=== PATIENT | male | born 1940 | race Caucasian/White ===

== ENCOUNTER 2016-02-14 11:23 | Emergency (ER) | payer MEDICARE ==
[~2016-02-14] VITALS: Ht 180.3 cm; Wt 72.0 kg
[~2016-02-14 11:23] MED LIST: ASPI325T24 PO; AVOD0.5C PO; DIOV80TA4 PO; HEPA10KP SQ; OXYC1SOL5 PO; TAMS0.4C67 PO; TRIL135C PO
[2016-02-14 11:31] VITALS: BP 122/58; PULSE 75; RESP 16; TEMP 98.5; O2SAT 96
[2016-02-14] MEDS ORDERED: GEMF600T PO (11:48)
[2016-02-14] MEDS ORDERED: MULT1TAB85 PO (11:48)
[2016-02-14] MEDS ORDERED: AMLO2.5T PO (11:48)
[2016-02-14] MEDS ORDERED: FINA5TAB2 PO (11:48)
[2016-02-14] MEDS ORDERED: ASPI325T PO (11:48)
[2016-02-14] MEDS ORDERED: TAMS0.4C4 PO (11:48)
[2016-02-14] MEDS ORDERED: ACETAMINOPHEN 325 MG TAB PO ONE (12:30)
--- NOTE | 2016-02-14 13:09 | RADHPO ---
EXAM DATE/TIME: 02/14/2016 12:36 [facility] COMPARISON: No previous studies available for comparison. INDICATIONS: Right hip pain after fall. MEDICAL HISTORY: None. SURGICAL HISTORY: None. ENCOUNTER: Initial ACUITY: 3 days PAIN SCORE: 10/10 LOCATION: Right posterior buttock FINDINGS: Degenerative changes are present about the right hip. Alignment is anatomic. Fracture is not apprec iated. CONCLUSION: Anatomic alignment without fracture. Moderate vascular calcifications. Vijay Donis MD FACR on February 14, 2016 at 13:00 Board Certified Radiologist. This report was verified electronically.
[2016-02-14 14:20] VITALS: BP 144/50; PULSE 69; RESP 14; O2SAT 100
--- NOTE | 2016-02-14 14:41 | PD ---
HPI Chief Complaint: Fall Time Seen by Provider: 12:21 Travel History International Travel<30 days: No Contact w/Intl Traveler<30days: No Traveled to known affect area: No History of Present Illness HPI This 76-year-old male says that he fell 3 days ago. He landed on his right hip. Since then he's been having pain in the area of the hip and the right groin. He did have a fractured pelvis several years ago. He has been able to bear weight with the use of a walker. He generally does use a walker because he has had falls in the past. The pain is having is aggravated by certain movements and by weightbearing. He does live alone PFSH Past Medical History Hx Anticoagulant Therapy: Yes (ASPIRIN) Arthritis: Yes Blood Disorders: No Cancer: No Cardiovascular Problems: Yes (Vascular disease) High Cholesterol: Yes Diabetes: No Diminished Hearing: Yes Endocrine: No Glaucoma: Yes Genitourinary: Yes (BPH) Hepatitis: No Hiatal Hernia: No Hypertension: Yes Immune Disorder: No Musculoskeletal: No Neurologic: No Psychiatric: No Reproductive: No Respiratory: No Sleep Apnea: Yes Thyroid Disease: No Tetanus Vaccination: > 5 Years Influenza Vaccination: No PNEUMOCCOCAL Vaccine (Year): 2 Past Surgical History Abdominal Surgery: No Cardiac Surgery: No (RIGHT LEG BLOCKAGE REMOVAL , Carotid artery surgery right and left) Ear Surgery: No Endocrine Surgery: No Eye Surgery: No Genitourinary Surgery: No Gynecologic Surgery: No Pacemaker: No Thoracic Surgery: No Other Surgery: Yes (Carotids BL, right leg vascular) Social History Alcohol Use: Yes (2 vodka's daily) Tobacco Use: Yes (7-8 cigarettes/day) Substance Use: No Allergies-Medications (Allergen,Severity, Reaction): Coded Allergies: No Known Allergies (Verified , 02/14/16) Reported Meds & Prescriptions Reported Meds & Active Scripts Active Lortab (Hydrocodone-Acetaminophen) 5-325 Mg Tab 1-2 Tab PO Q6H PRN Reported Multivitamin Men (Multiple Vitamins W/ Minerals) 1 Tab Tab 1 Tab PO DAILY Aspirin 325 Mg Tab 325 Mg PO DAILY Amlodipine (Amlodipine Besylate) 2.5 Mg Tab 2.5 Mg PO DAILY Finasteride 5 Mg Tab 5 Mg PO DAILY Do not crush. Tamsulosin (Tamsulosin HCl) 0.4 Mg Cap 0.4 Mg PO HS Gemfibrozil 600 Mg Tab 600 Mg PO BIDAC Take 30 minutes prior to breakfast and dinner. Review of Systems General / Constitutional: No: Fever, Chills Eyes: No: Diploplia HENT: No: Headaches Cardiovascular: No: Chest Pain or Discomfort Respiratory: No: Cough Genitourinary: No: Urgency Musculoskeletal: Positive: Myalgias, Pain Skin: No Rash Physical Exam Narrative GENERAL: Well-developed male SKIN: Warm and dry. HEAD: Atraumatic. Normocephalic. EYES: Pupils equal and round. No scleral icterus. No injection or drainage. ENT: No nasal bleeding or discharge. Mucous membranes pink and moist. NECK: Trachea midline. No JVD. MUSCULOSKELETAL: No obvious deformities. No clubbing. No cyanosis. No edema. He does have some Tenderness in the right inguinal area. He does complain of some pain with internal and external rotation of the head. Distal pulses are intact NEUROLOGICAL: Awake and alert. No obvious cranial nerve deficits. Motor grossly within normal limits. Normal speech. PSYCHIATRIC: Appropriate mood and affect; insight and judgment normal. Data Data Last Documented VS Vital Signs Date Time Temp Pulse Resp B/P Pulse Ox O2 Delivery O2 Flow Rate FiO2 02/14/16 14:20 69 14 144/50 100 Room Air 02/14/16 11:31 98.5 Orders Hip, Uni(Ap&Lat) W Ap Pelvis (02/14/16 12:21) Acetaminophen (Tylenol) (02/14/16 12:30) Ct Pelvis W/O Iv Contrast (02/14/16 ) Acetamin-Hydrocod 325-5 Mg ([place] 5-325 (02/14/16 15:45) MDM Medical Decision Making Medical Screen Exam Complete: Yes Emergency Medical Condition: Yes Medical Record Reviewed: Yes Differential Diagnosis Differential includes contusion, fracture Narrative Course Plain films were ordered initially. They've been read as negative for acute fracture. Patient does appear uncomfortable with pain and I ordered a CT scan to assess for possible occult fracture. CT scan has been performed. It has been read by Dr. bartholomew. There is an acute fracture the right inferior pubic ramus with previous healed fracture also present. Comminuted fracture of the right acetabulum previously seen in April 2014 with fracture lines remaining visible. There is questionable acute hairline fracture of the right iliac bone as well. Patient wishes to be released. I will prescribe Lortab for pain. He is to follow-up with Dr. Houston who is his orthopedic doctor Diagnosis Primary Impression: Fracture, pelvis closed Qualified Code: S32.591A - Other closed fracture of right pubis, initial encounter Scripts Hydrocodone-Acetaminophen (Lortab)5-325 Mg Tab1-2 Tab PO Q6H PRN (PAIN) #30 TAB Ref 0 Prov:Van Toscano MD 02/14/16 Disposition: 01 DISCHARGE HOME Condition: Stable Van Toscano MD Feb 14, 2016 14:41
[2016-02-14] MEDS ORDERED: ACETAMINOPHEN/HYDROcodone 325 MG/5 MG TAB PO ONE (15:45)
[2016-02-14] MEDS ORDERED: HYDR-3533 PO (15:53)
--- NOTE | 2016-02-14 15:57 | RADHPO ---
EXAM DATE/TIME: 02/14/2016 15:10 [facility] COMPARISON: No previous studies available for comparison. INDICATIONS : Fall three days ago. Right hip and groin pain. ORAL CONTRAST: No oral contrast ingested. RADIATION DOSE: 24.09 CTDIvol (mGy) MEDICAL HISTORY : Hypertension. SURGICAL HISTORY : None. ENCOUNTER: Initial ACUITY: 3 days PAIN SCALE: 7/10 LOCATION: Right pelvis TECHNIQUE: Volumetric scanning of the pelvis was performed. Using automated exposure control and adjustment of the mA and/or kV according to patient size, radiation dose was kept as low as reasonably achievable t o obtain optimal diagnostic quality images. FINDINGS: Comparison is a CT right hip from April 2014. Previous comminuted fracture at the right acetabulum is again visualized with fracture lines still visible. 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 There is a remote healed fracture of the right inferior pubic ramus and there is also evidence for an acute fracture the inferior pubic r amus that is nondisplaced. The proximal right femur is intact. 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 CONCLUSION: 1. Acute fracture right inferior pubic ramus with a previous healed fracture also present. Comminuted fracture of the right acetabulum previously seen in April 2014 with the fracture lines remaining vis ible. There is a questionable acute hairline fracture of the right iliac bone as well. Antonio Belle MD on February 14, 2016 at 15:27 Board Certified Radiologist. This report was verified electronically.
[2016-02-14 16:35] VITALS: BP 137/64; PULSE 69; RESP 16; O2SAT 95
== END 2016-02-14 16:35 | disposition home or self-care (01) ==
LOC: PHED 11:23
DX: S32.591A Other specified fracture of right pubis, initial encounter for closed fracture (principal); W01.0XXA Fall on same level from slipping, tripping and stumbling without subsequent striking against object, initial encounter; Z79.01 Long term (current) use of anticoagulants; E78.00 Pure hypercholesterolemia, unspecified; I10 Essential (primary) hypertension; F17.210 Nicotine dependence, cigarettes, uncomplicated
CPT/HCPCS: 72192; 73502

== ENCOUNTER → 2016-03-11 | Outpatient (CLI) | payer MEDICARE ==
[~2016-03-11] MED LIST changes: +AMLO2.5T PO; +ASPI325T PO; -ASPI325T24 PO; -AVOD0.5C PO; -DIOV80TA4 PO; +FINA5TAB2 PO; +GEMF600T PO; -HEPA10KP SQ; +HYDR-3533 PO; +MULT1TAB85 PO; -OXYC1SOL5 PO; +TAMS0.4C4 PO; -TAMS0.4C67 PO; -TRIL135C PO
[2016-03-11 16:24] LABS: HDL CHOLESTEROL 83.4 MG/DL (40.0-60.0)
== END ==
LOC: PLAB 11:58
PROVIDERS: ATTEND Family Medicine
DX: E78.00 Pure hypercholesterolemia, unspecified (principal)
CPT/HCPCS: 36415; 80061; 84460

== ENCOUNTER → 2016-04-09 | Outpatient (CLI) | payer MEDICARE ==
[2016-04-09 15:56] LABS: AUTOMATED NEUTROPHIL # 2.2 TH/MM3 (1.8-7.7); BASOPHIL % 0.6 % (0.0-2.0); EOSINOPHIL # 0.1 TH/MM3 (0-0.4); HEMATOCRIT 34.4 % (39.0-51.0); HEMO FLAGS DIFF FINAL; LYMPH % 27.1 % (9.0-44.0); LYMPHOCYTE # 1.1 TH/MM3 (1.0-4.8); MEAN CELL VOLUME 104.1 FL (80.0-100.0); MEAN CORPUSCULAR HEMOGLOBIN 35.7 PG (27.0-34.0); MEAN CORPUSCULAR HGB CONC 34.3 % (32.0-36.0); MONO % 15.3 % (0.0-8.0); PLATELET COUNT 140 TH/MM3 (150-450); RED CELL DISTRIBUTION WIDTH 13.7 % (11.6-17.2)
[2016-04-09 16:15] LABS: BICARBONATE 27.2 MEQ/L (21.0-32.0); POTASSIUM 4.7 MEQ/L (3.5-5.1)
== END ==
LOC: PLAB 13:25
PROVIDERS: ATTEND Internal Medicine Nephrology
DX: N18.3 Chronic kidney disease, stage 3 (moderate) (principal)
CPT/HCPCS: 36415; 80069; 83970; 85025

== ENCOUNTER → 2016-10-13 | Outpatient (CLI) | payer MEDICARE ==
[2016-10-13 16:24] LABS: AUTOMATED NEUTROPHIL # 2.8 TH/MM3 (1.8-7.7); BASOPHIL % 0.5 % (0.0-2.0); EOSINOPHIL # 0.1 TH/MM3 (0-0.4); EOSINOPHIL % 2.2 % (0.0-4.0); HEMATOCRIT 33.7 % (39.0-51.0); HEMO FLAGS DIFF FINAL; LYMPH % 14.7 % (9.0-44.0); LYMPHOCYTE # 0.6 TH/MM3 (1.0-4.8); MEAN CORPUSCULAR HEMOGLOBIN 36.5 PG (27.0-34.0); MEAN CORPUSCULAR HGB CONC 33.8 % (32.0-36.0); MONO % 17.2 % (0.0-8.0); NEUT % 65.4 % (16.0-70.0); PLATELET COUNT 125 TH/MM3 (150-450); RED BLOOD COUNT 3.12 MIL/MM3 (4.50-5.90); RED CELL DISTRIBUTION WIDTH 14.2 % (11.6-17.2); WHITE BLOOD COUNT 4.3 TH/MM3 (4.0-11.0)
[2016-10-13 16:48] LABS: BICARBONATE 21.8 MEQ/L (21.0-32.0); POTASSIUM 5.2 MEQ/L (3.5-5.1)
== END ==
LOC: PLAB 13:14
PROVIDERS: ATTEND Internal Medicine Nephrology
DX: N40.1 Benign prostatic hyperplasia with lower urinary tract symptoms (principal); N18.3 Chronic kidney disease, stage 3 (moderate)
CPT/HCPCS: 36415; 80069; 83970; 84153; 85025

== ENCOUNTER → 2016-11-25 | Outpatient (CLI) | payer MEDICARE | LOC: PLAB 13:32 | PROVIDERS: ATTEND Surgery Vascular Surgery | DX: N18.9 Chronic kidney disease, unspecified (principal) | CPT/HCPCS: 36415; 82565; 84520 ==

== ENCOUNTER 2016-12-22 09:03 | Observation (INO) | payer MEDICARE ==
[2016-12-22] VITALS (9 sets, daily range): BP systolic 113–164; BP diastolic 58–75; PULSE 59–67; RESP 16–17; TEMP 97.9–98.1; O2SAT 95–98
[~2016-12-22] VITALS: Ht 180.3 cm; Wt 70.0 kg
[~2016-12-22 09:03] MED LIST changes: +ASPI-183 PO; -ASPI325T PO; +CENTCHW4 CHEW; +COLL30T TOPICAL; +DOXY100C PO; +FISH1200 PO; +HYDR-3516 PO; -HYDR-3533 PO; -MULT1TAB85 PO; +MULTTAB67 PO; +VOLT1GEL16 TOPICAL
[2016-12-22] MEDS ORDERED: SODIUM CHLORIDE 0.9% INJ 100 ML ONE (10:08)
[2016-12-22] MEDS ORDERED: ceFAZolin INJ 1,000 MG VIAL ONE (10:08)
[2016-12-22 10:14] LABS: AUTOMATED NEUTROPHIL # 4.3 TH/MM3 (1.8-7.7); BASOPHIL % 0.8 % (0.0-2.0); EOSINOPHIL # 0.1 TH/MM3 (0-0.4); EOSINOPHIL % 1.3 % (0.0-4.0); HEMATOCRIT 36.3 % (39.0-51.0); HEMO FLAGS DIFF FINAL; LYMPH % 11.9 % (9.0-44.0); LYMPHOCYTE # 0.7 TH/MM3 (1.0-4.8); MEAN CELL VOLUME 105.9 FL (80.0-100.0); MEAN CORPUSCULAR HEMOGLOBIN 35.9 PG (27.0-34.0); MEAN CORPUSCULAR HGB CONC 33.9 % (32.0-36.0); MONO % 11.6 % (0.0-8.0); NEUT % 74.4 % (16.0-70.0); PLATELET COUNT 164 TH/MM3 (150-450); RED BLOOD COUNT 3.43 MIL/MM3 (4.50-5.90); RED CELL DISTRIBUTION WIDTH 13.2 % (11.6-17.2); WHITE BLOOD COUNT 5.8 TH/MM3 (4.0-11.0)
[2016-12-22 10:19] LABS: APTT (PATIENT) 30.8 SEC (24.3-30.1); PROTHROMBIN TIME - PATIENT 10.5 SEC (9.8-11.6)
[2016-12-22] MEDS ORDERED: HYDROmorphone HCL PF 1 MG/ML VIAL ONE (10:26)
[2016-12-22 10:30] LABS: BICARBONATE 25.1 MEQ/L (21.0-32.0); POTASSIUM 4.2 MEQ/L (3.5-5.1)
[2016-12-22] MEDS ORDERED: METOPROLOL TARTRATE 25 MG TAB PO PRN (10:30)
[2016-12-22] MEDS ORDERED: LACTATED RINGER'S 1000 ML IV PRN (10:30)
[2016-12-22] MEDS ORDERED: SODIUM CHLORID 0.9% 500 ML IV PRN (10:30)
[2016-12-22] MEDS ORDERED: POVIDONE IODINE 5% (ANTISEPSIS KIT) 4 APPLICATIONS EACH NARE PRN (10:30)
[2016-12-22] MEDS ORDERED: CHLORHEXIDINE GLUCONATE 2 % 1 PACK (2 CLOTHS) TOPICAL PRN (10:30)
[2016-12-22] MEDS ORDERED: ceFAZolin 1,000 MG/NS 100 ML IV SCH ×2 (10:30)
[2016-12-22] MEDS ORDERED: HYDROmorphone HCL PF 1 MG/ML VIAL IV PUSH ONE (11:00)
[2016-12-22] MEDS ORDERED: PROPOFOL 500 MG/50 ML INJ 50 ML ONE (11:07)
[2016-12-22] MEDS ORDERED: HEPARIN SODIUM - SQ 10,000 UNITS/ML VIAL ONE (11:12)
[2016-12-22] MEDS ORDERED: BUPIVACAINE/EPINEPHRINE 0.5% PF 30 ML VIAL ONE (11:12)
[2016-12-22] MEDS ORDERED: HEPARIN SODIUM - IV 10,000 UNITS/10 ML VIAL ONE (11:13)
[2016-12-22] MEDS ORDERED: MIDAZOLAM HCL 2 MG/2 ML VIAL ONE (11:23)
[2016-12-22] MEDS ORDERED: FAMOTIDINE 20 MG/2 ML VIAL ONE (11:24)
[2016-12-22] MEDS ORDERED: ePHEDrine/NS 25 MG/5 ML SYR IV ONE (12:00)
[2016-12-22] MEDS ORDERED: LIDOCAINE HCL 1% PF 5 ML AMPULE OTHER ONE (12:00)
[2016-12-22] MEDS ORDERED: DEXAMETHASONE SOD PHOS 4 MG/ML VIAL IV ONE (12:00)
[2016-12-22] MEDS ORDERED: PROPOFOL 200 MG/20 ML AMP IV ONE (12:00)
[2016-12-22] MEDS ORDERED: IOHEXOL 300 MG/ML 50 ML BTL (for RAD DIAG) OTHER ONE (12:00)
[2016-12-22] MEDS ORDERED: SODIUM CHLORID 0.9% 500 ML INJ 500 ML IV ONE (12:00)
[2016-12-22] MEDS ORDERED: DEXTROSE IV ONE (13:24)
[2016-12-22] MEDS ORDERED: NITROGLYCERIN IV ONE (13:24)
--- NOTE | 2016-12-22 13:58 | EKG ---
Date Performed: 12/22/2016 Time Performed: 09:40:06 PTAGE: 76 years EKG: Sinus rhythm NORMAL ECG INTERPRETATION BASED ON A DEFAULT AGE OF 40 YEARS PREVIOUS TRACING : 05/05/2014 00.35 Compared to prior tracing no significant change DOCTOR: Jaime Dai Interpretating Date/Time 12/22/2016 13:57:21
[2016-12-22] MEDS ORDERED: DO NOT ADM ANY ANTICOAGULANT DRUGS PRN (14:43)
[2016-12-22] MEDS ORDERED: LACTATED RINGER'S 1000 ML INJ 1,000 ML IV ONE (15:45)
[2016-12-22] MEDS ORDERED: SODIUM CHLORIDE 0.9% FLUSH 10 ML FLUSH IV FLUSH PRN (15:45)
[2016-12-22] MEDS ORDERED: METOPROLOL TARTRATE 5 MG/5 ML VIAL IV PUSH PRN (15:45)
[2016-12-22] MEDS ORDERED: ONDANSETRON HCL 4 MG/2 ML VIAL IV PUSH PRN (15:45)
[2016-12-22] MEDS ORDERED: MORPHINE SULFATE 4 MG/ML INJ IV PUSH PRN (15:45)
[2016-12-22] MEDS ORDERED: ATROPINE SULFATE 1 MG/ML VIAL IV PUSH ONE (15:45)
[2016-12-22] MEDS ORDERED: *LABETALOL HCL 100 MG/20 ML VIAL PERIprocedural Use ONLY ONE (15:47)
[2016-12-22] MEDS ORDERED: *ENALAPRILAT 1.25 MG/ML VIAL PERIprocedural Use ONLY ONE (15:50)
[2016-12-22] MEDS ORDERED: ATROPINE SULFATE 1 MG/ML VIAL IV PUSH PRN (16:00)
[2016-12-22] MEDS ORDERED: *morphine SULFATE 8 MG/ML PERIprocedure ONLY ONE (16:00)
[2016-12-22] MEDS ORDERED: GEMFIBROZIL 600 MG TAB PO SCH (16:00)
[2016-12-22] MEDS ORDERED: CLOPIDOGREL 75 MG TAB PO ONE (18:00)
[2016-12-22] MEDS ORDERED: PILL SPLITTER OTHER PRN (18:00)
--- NOTE | 2016-12-22 18:29 | MP ---
cc: MANAS ERWIN D.P.M., JAMES WILLIAMSON, C.B. 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 OPERATIVE PROCEDURE Right SFA/popliteal orbital atherectomy with drug coated percutaneous balloon angioplasty. SURGEON Leonard Ortega MD HIDES AND SKINS COLORER JARED Bradley ANESTHESIA Local MAC DESCRIPTION OF PROCEDURE With the patient in supine position IV sedation was induced, the abdomen, both groins and thighs prepped with Betadine and draped in a sterile fashion. One gram of Ancef was administered intravenously. Following a protocol time-out, the skin and subcutaneous tissue surrounding the proposed right common femoral access site was preemptively infiltrated with 0.5% Marcaine with epinephrine. Utilizing ultrasound guidance, an 18 gauge needle was inserted into the right mid common femoral lumen and a J-wire advanced under fluoroscopic guidance into the proximal superficial femoral artery. A 5-Marshallese hemostatic sheath was deployed over the J-wire. Selective right femoral-popliteal tibial angiography was then accomplished by injecting diluted contrast via the sheath side-arm in conjunction with digital C-arm fluoroscopic imaging. This confirmed occlusion of the SFA at the adductor level. A short segment of the popliteal reconstituted above the knee, but an additional segmental occlusion occurred just above the knee joint level. The peroneal provided primary runoff to the right foot. It was patent to the ankle level at which point the peroneal collaterals reconstituted the distal anterior tibial and posterior tibial artery. The patient was systemically heparinized with 5000 units and ACT measured above 300. Initial attempt at crossing the SFA occlusion with advantage guidewire, quick cross catheter support failed. The SFA occlusion was successfully crossed with a 25 gram weighted cook wire supported with a 0.14 quick cross catheter. However, the quick cross catheter could not be negotiated across the occlusion into the popliteal. Therefore, the cook wire was replaced with a Viper wire which was successfully negotiated across the SFA occlusion. The wire tract was enlarged by inserting a CSI orbital atherectomy 1.5 classic crown thinning at 60,000 r.p.m. This allowed passage of the quick cross support catheter and then the popliteal occlusion was easily negotiated with the viper quick cross catheter combination. The popliteal occlusion was then treated with a 1.5 CSI crown spun at 60, 90 and 140,000 r.p.m. The atherectomy catheter was then retracted into the SFA occlusion which was similarly treated. Both atherectomized occlusions were then dilated with 4 x 40 angioplasty balloons inflated to 8 atmospheres followed by treatment of the popliteal occlusion with a 4 x 40 drug coated balloon inflated to 8 atmospheres - 3-minute inflation, and the SFA occlusion treated with a 5 x 60 mm drug coated balloon inflated to 8 atmospheres - 3-minute inflation. Completion angiogram revealed much improved flow with less than 20% residual stenosis at both the angioplasty sites. In addition, the runoff looked much improved. The anterior tibial actually visualized along its proximal aspect, although it occluded near the ankle level. The peroneal remained a dominant runoff vessel with reconstitution of the posterior tibial at the ankle level. None of the tibial disease appeared amenable to improvement with endovascular intervention. Heparin was not reversed. The 5-Marshallese sheath was secured with a skin suture and sterile dressing applied. At the conclusion of the procedure, Doppler flow was robust, biphasic within the dorsalis pedis. The patient returned to post anesthesia care unit in stable condition having tolerated the procedure well. MD BISI Cali/ /4:41 PM /6:13 PM
[2016-12-22] MEDS: DOXYCYCLINE HYCLATE 100 MG CAP PO SCH (21:10)
[2016-12-23] VITALS (16 sets, daily range): BP systolic 139–142; BP diastolic 64–65; PULSE 64–79; RESP 17; TEMP 97.7–98.4; O2SAT 94–96
[2016-12-23] MEDS: DOXYCYCLINE HYCLATE 100 MG CAP PO SCH (08:56)
[2016-12-23] MEDS ORDERED: TAMSULOSIN HCL 0.4 MG CAP PO SCH (09:00)
[2016-12-23] MEDS ORDERED: FINASTERIDE 5 MG TAB PO SCH (09:00)
[2016-12-23] MEDS ORDERED: ASPIRIN 81 MG CHEW TAB PO SCH (09:00)
[2016-12-23] MEDS ORDERED: amLODIPine BESYLATE 5 MG TAB PO SCH (09:00)
[2016-12-24] MEDS ORDERED: CLOPIDOGREL 75 MG TAB PO SCH (09:00)
== END 2016-12-23 14:15 | disposition home or self-care (01) ==
LOC: HSDC 09:03 → HCPC 16:47 → HSDC 17:29 → HCPC 17:32
PROVIDERS: ADMIT Surgery Vascular Surgery; ATTEND Surgery Vascular Surgery
DX: I70.211 Atherosclerosis of native arteries of extremities with intermittent claudication, right leg (principal); F17.210 Nicotine dependence, cigarettes, uncomplicated; I10 Essential (primary) hypertension; R79.1 Abnormal coagulation profile; Z79.82 Long term (current) use of aspirin
CPT/HCPCS: 01924; 37227; 75710; 80048; 85025; 85347; 85610; 85730; 86850; 86900; 86901; 93005; C1725; C1769; C2623; G0378; J0690; J1100; J1170; J1644; J2250; J2270; J7040; J7120; Q9967

== ENCOUNTER 2017-01-12 12:57 | Observation (INO) | payer MEDICARE ==
[~2017-01-12] VITALS: Ht 180.3 cm; Wt 71.5 kg
[~2017-01-12 12:57] MED LIST changes: +LIDOCAINE HCL 1% PF 5 ML SYRINGE OTHER ONE; -MULTTAB67 PO; +ONDANSETRON HCL 4 MG/2 ML VIAL IV PUSH ONE; +PHENYLEPH/NS 1000 MCG/10 ML SYR IV ONE; +PROPOFOL 200 MG/20 ML AMP IV ONE; +ePHEDrine/NS 25 MG/5 ML SYR IV ONE
[2017-01-12] MEDS ORDERED: PLAV75TA29 PO (13:43)
[2017-01-12] MEDS ORDERED: SODIUM CHLORID 0.9% 500 ML IV PRN (13:45)
[2017-01-12] MEDS ORDERED: LACTATED RINGER'S 1000 ML IV PRN (13:45)
[2017-01-12] MEDS ORDERED: CHLORHEXIDINE GLUCONATE 2 % 1 PACK (2 CLOTHS) TOPICAL PRN (13:45)
[2017-01-12] MEDS ORDERED: INSULIN HUMAN REGULAR 1,000 UNITS/10 ML VIAL SQ PRN (13:45)
[2017-01-12] MEDS ORDERED: ceFAZolin 1,000 MG/NS 100 ML IV SCH ×2 (13:45)
[2017-01-12] MEDS ORDERED: POVIDONE IODINE 5% (ANTISEPSIS KIT) 4 APPLICATIONS EACH NARE PRN (13:45)
[2017-01-12] MEDS ORDERED: METOPROLOL TARTRATE 25 MG TAB PO PRN (13:45)
[2017-01-12 14:44] LABS: AUTOMATED NEUTROPHIL # 4.9 TH/MM3 (1.8-7.7); BASOPHIL % 0.3 % (0.0-2.0); EOSINOPHIL % 0.5 % (0.0-4.0); HEMATOCRIT 30.7 % (39.0-51.0); HEMO FLAGS DIFF FINAL; LYMPH % 10.5 % (9.0-44.0); LYMPHOCYTE # 0.7 TH/MM3 (1.0-4.8); MEAN CELL VOLUME 106.2 FL (80.0-100.0); MEAN CORPUSCULAR HEMOGLOBIN 35.7 PG (27.0-34.0); MEAN CORPUSCULAR HGB CONC 33.6 % (32.0-36.0); MONO % 10.1 % (0.0-8.0); NEUT % 78.6 % (16.0-70.0); PLATELET COUNT 226 TH/MM3 (150-450); RED BLOOD COUNT 2.89 MIL/MM3 (4.50-5.90); RED CELL DISTRIBUTION WIDTH 14.5 % (11.6-17.2); WHITE BLOOD COUNT 6.3 TH/MM3 (4.0-11.0)
[2017-01-12 14:58] LABS: BICARBONATE 27.2 MEQ/L (21.0-32.0); POTASSIUM 4.1 MEQ/L (3.5-5.1)
[2017-01-12] MEDS ORDERED: LIDOCAINE HCL 1% 50 ML VIAL ONE (17:29)
[2017-01-12] MEDS ORDERED: DO NOT ADM ANY ANTICOAGULANT DRUGS PRN (18:36)
[2017-01-12] MEDS ORDERED: *morphine SULFATE 8 MG/ML PERIprocedure ONLY ONE ×2 (18:46→19:25)
[2017-01-12] MEDS ORDERED: PILL SPLITTER OTHER PRN (19:30)
[2017-01-12] MEDS ORDERED: ACETAMINOPHEN/HYDROcodone 325 MG/5 MG TAB PO PRN (19:30)
[2017-01-12] MEDS ORDERED: ONDANSETRON HCL 4 MG/2 ML VIAL IV PUSH PRN (19:45)
[2017-01-12] MEDS: DICLOFENAC SODIUM 1% TOPICAL SCH (20:52)
--- NOTE | 2017-01-12 20:54 | MP ---
cc: LAURA ORTEGA DATE OF SURGERY: 01/12/2017. PREOPERATIVE DIAGNOSIS: Demarcated ischemic necrosis, right second toe. POSTOPERATIVE DIAGNOSIS: Demarcated ischemic necrosis, right second toe. OPERATIVE PROCEDURE PERFORMED: Right second toe amputation. SURGEON: Laura Ortega M.D. ANESTHESIA: General / local. DESCRIPTION OF THE PROCEDURE IN DETAIL: With the patient in the supine position and under general anesthesia, the right foot was prepped with Betadine and draped in a sterile fashion. A right second toe digital block was accomplished with 1% Xylocaine. A racket-shaped incision was performed around the base of the right second toe proximal to the demarcated ischemic necrosis. The flexor and extensor tendons were transected and the phalanx excised with a bone cutter immediately distal to the metatarsophalangeal joint. The wound was irrigated with saline. Strict hemostasis was achieved and skin edges secured with skin kevon. The rest of the leg was debrided, areas surrounding the superficial ulcers along the anterior and lateral tibial surface with gauze and saline. An Unna boot was applied from the toes to the knee joint level. There were no operative complications. The patient returned to the recovery room in stable condition having tolerated procedure well. MD BISI Cali/XAVIER /7:35 PM /8:37 PM
[2017-01-12 20:56] VITALS: BP 114/58; PULSE 70; RESP 18; TEMP 95.8; O2SAT 96
[2017-01-12] MEDS: ACETAMINOPHEN/HYDROcodone 325 MG/5 MG TAB PO PRN (21:04)
[2017-01-13] VITALS: BP 95/45; PULSE 71; RESP 18; TEMP 96.4; O2SAT 98
[2017-01-13] MEDS: ACETAMINOPHEN/HYDROcodone 325 MG/5 MG TAB PO PRN ×3 (01:59→11:31)
[2017-01-13 04:00] VITALS: BP 109/55; PULSE 72; RESP 18; TEMP 96.4; O2SAT 97
[2017-01-13] MEDS ORDERED: GEMFIBROZIL 600 MG TAB PO SCH (07:00)
[2017-01-13 08:00] VITALS: BP 109/53; PULSE 69; RESP 17; TEMP 97.3; O2SAT 93
[2017-01-13] MEDS: DICLOFENAC SODIUM 1% TOPICAL SCH (08:13)
[2017-01-13 08:30] VITALS: O2SAT 93
[2017-01-13] MEDS ORDERED: CLOPIDOGREL 75 MG TAB PO SCH (09:00)
[2017-01-13] MEDS ORDERED: ASPIRIN EC 325 MG TABEC PO SCH (09:00)
[2017-01-13] MEDS ORDERED: FINASTERIDE 5 MG TAB PO SCH (09:00)
[2017-01-13] MEDS ORDERED: amLODIPine BESYLATE 5 MG TAB PO SCH (09:00)
[2017-01-13] MEDS ORDERED: TAMSULOSIN HCL 0.4 MG CAP PO SCH (09:00)
[2017-01-13 12:00] VITALS: BP 113/55; PULSE 69; RESP 18; TEMP 98.3; O2SAT 92
[2017-01-13] MEDS ORDERED: CIPR500T2 PO (14:13)
== END 2017-01-13 14:47 | disposition home or self-care (01) ==
LOC: HSDC 12:57 → HSDI 19:08 → N07A 20:21
PROVIDERS: ADMIT Surgery Vascular Surgery; ATTEND Surgery Vascular Surgery
DX: M86.8X7 Other osteomyelitis, ankle and foot (principal); I10 Essential (primary) hypertension; E78.00 Pure hypercholesterolemia, unspecified; G47.30 Sleep apnea, unspecified; M54.30 Sciatica, unspecified side; Z79.899 Other long term (current) drug therapy; Z79.82 Long term (current) use of aspirin
CPT/HCPCS: 01480; 28820; 80048; 85025; 88305; 88311; G0378; J2270; J2370; J2405; J3010

== ENCOUNTER → 2017-03-18 | Outpatient (CLI) | payer MEDICARE ==
[~2017-03-18] MED LIST changes: +CIPR500T2 PO; -DOXY100C PO; -HYDR-3516 PO; -LIDOCAINE HCL 1% PF 5 ML SYRINGE OTHER ONE; +MAGN30S PO; -ONDANSETRON HCL 4 MG/2 ML VIAL IV PUSH ONE; +OXYC1TAB63 PO; +PERI PO; -PHENYLEPH/NS 1000 MCG/10 ML SYR IV ONE; +PLAV75TA29 PO; -PROPOFOL 200 MG/20 ML AMP IV ONE; -ePHEDrine/NS 25 MG/5 ML SYR IV ONE
[2017-03-18 17:58] LABS: CHOLESTEROL/ HDL RATIO 1.69 RATIO; HDL CHOLESTEROL 94.5 MG/DL (40.0-60.0)
== END ==
LOC: PLAB 13:55
PROVIDERS: ATTEND Family Medicine
DX: E78.00 Pure hypercholesterolemia, unspecified (principal)
CPT/HCPCS: 36415; 80061; 84460

== ENCOUNTER 2017-03-20 03:11 | Inpatient (IN) | payer MEDICARE ==
[2017-03-19 20:00] VITALS: BP 122/55; PULSE 75; RESP 16; TEMP 97.7; O2SAT 95
[2017-03-20] VITALS (19 sets, daily range): BP systolic 86–184; BP diastolic 41–80; PULSE 71–80; RESP 12–20; TEMP 96.5–98.4; O2SAT 97–100
[~2017-03-20] VITALS: Ht 180.3 cm; Wt 71.8 kg
[~2017-03-20 03:11] MED LIST changes: -MAGN30S PO; -OXYC1TAB63 PO; -PERI PO
[2017-03-20] MEDS ORDERED: DIPHTH/TETANUS/ACEL PERTUSSIS (BOOSTER) 0.5 ML VIAL/PFS IM ONE (03:30)
[2017-03-20] MEDS ORDERED: SODIUM CHLORIDE 0.9% FLUSH 10 ML FLUSH IVF PRN (03:30)
--- NOTE | 2017-03-20 04:21 | PD ---
HPI Chief Complaint: Fall Time Seen by Provider: 03:24 Travel History International Travel<30 days: No Contact w/Intl Traveler<30days: No Traveled to known affect area: No History of Present Illness HPI 77-year-old male presents to the emergency department from home by EMS transport after a fall. Patient had been drinking alcohol this evening and lost his balance and fell hitting his head on a table edge. Patient does not recall loss of consciousness. Patient denies neck pain chest pain rib pain back pain abdominal pain or extremity pain except for left hip pain where he landed on the floor reportedly. Patient does take Plavix. Patient sustained a large 3-1/2 inch laceration to the right posterior scalp. According to critical care unit nurse report there was quite a bit of blood loss at the scene. Patient was identified to be hypotensive with reportedly a systolic blood pressure of 80 was given a 500 cc bolus and presents to the emergency department normotensive. Patient does not know his tetanus status. Patient does admit to daily tobacco use. Patient denies substance use. Patient has history of hypertension dyslipidemia chronic renal insufficiency sleep apnea lumbosacral degenerative joint disease and sciatica peripheral artery disease carotid atherosclerosis status post carotid endarterectomy and more recently has been evaluated by his vascular surgeon Dr. 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 Patient complains of head pain and left ankle pain. Patient rates his pain 6/10 in intensity. PFSH Past Medical History Narrative Medical Hypertension dyslipidemia peripheral vascular disease carotid endarterectomy right femoral endarterectomy angioplasty right second toe amputation tobacco use or alcohol use; nursing notes reviewed Hx Anticoagulant Therapy: Yes (ASPIRIN) Arthritis: Yes Blood Disorders: No Cancer: No Cardiovascular Problems: Yes (Vascular disease) High Cholesterol: Yes Diabetes: No Diminished Hearing: Yes Endocrine: No Glaucoma: Yes Genitourinary: Yes (BPH) Hepatitis: No Hiatal Hernia: No Hypertension: Yes Immune Disorder: No Musculoskeletal: Yes Neurologic: No Psychiatric: No Reproductive: No Respiratory: No Sleep Apnea: Yes Thyroid Disease: No Tetanus Vaccination: Never Vaccinated Influenza Vaccination: Yes PNEUMOCCOCAL Vaccine (Year): 2 Past Surgical History Abdominal Surgery: No AICD: No Cardiac Surgery: Yes (RIGHT LEG BLOCKAGE REMOVAL , Carotid artery surgery right and left) Ear Surgery: No Endocrine Surgery: No Eye Surgery: No Genitourinary Surgery: No Gynecologic Surgery: No Joint Replacement: No Pacemaker: No Thoracic Surgery: No Other Surgery: Yes (Carotids BL, right leg vascular) Social History Alcohol Use: Yes (2 vodka's daily) Tobacco Use: Yes (7-8 cigarettes/day) Substance Use: No Allergies-Medications (Allergen,Severity, Reaction): Coded Allergies: No Known Allergies (Verified Allergy, Unknown, 01/12/17) Reported Meds & Prescriptions Reported Meds & Active Scripts Active Reported Plavix (Clopidogrel Bisulfate) 75 Mg Tab 75 Mg PO DAILY Centrum (Multiple Vitamins W/ Minerals) 1 Chew 1 Tab CHEW DAILY Fish Oil 1200 mg ([place]-3 Fatty Acids) 360 Mg-1,200 Mg Cap 1 Cap PO DAILY Voltaren (Diclofenac Sodium) 1 % Gel..gram. 1 Appful TOPICAL BID Santyl Topical (Collagenase) 250 Unit/Gm Oint 1 Applic TOPICAL DAILY Aspirin 325 Mg Tab 325 Mg PO DAILY Amlodipine (Amlodipine Besylate) 2.5 Mg Tab 2.5 Mg PO DAILY Finasteride 5 Mg Tab 5 Mg PO DAILY Do not crush. Tamsulosin (Tamsulosin HCl) 0.4 Mg Cap 0.4 Mg PO DAILY Gemfibrozil 600 Mg Tab 600 Mg PO BIDAC Take 30 minutes prior to breakfast and dinner. Review of Systems Except as stated in HPI: all other systems reviewed are Neg General / Constitutional: No: Fever, Chills Eyes: No: Visual changes HENT: Positive: Headaches, No: Vertigo, Lightheadedness, Neck Stiffness, Neck Pain Cardiovascular: No: Chest Pain or Discomfort Respiratory: No: Shortness of Breath Gastrointestinal: No: Nausea, Vomiting, Abdominal Pain Genitourinary: No: Flank Pain Musculoskeletal: Positive: Pain, No: Myalgias, Arthralgias Skin: Positive Other, No Rash (Ankle) Neurologic: Positive: Dizziness, No: Weakness, Syncope, Focal Abnormalities, Coordination Problem Psychiatric: No: Anxiety Endocrine: No: Heat Intolerance Hematologic/Lymphatic: Positive: Easy Bruising (Plavix) Physical Exam Narrative GENERAL: Well-developed well-nourished elderly male in no acute distress or respiratory distress; GCS 15 presents with backboard C-spine immobilization SKIN: Warm and dry. HEAD: Atraumatic. Normocephalic. 5.5 cm laceration right posterior parietal scalp no point bony tenderness. EYES: Pupils equal and round. Extraocular muscles intact. No scleral icterus. No injection or drainage. ENT: No nasal bleeding or discharge. Mucous membranes pink and moist. NECK: Trachea midline. No JVD. Cervical collar in place. CARDIOVASCULAR: Regular rate and rhythm. Chest wall: Nontender to palpation no ecchymosis no abrasion no point tenderness noted abnormality RESPIRATORY: No accessory muscle use. Clear to auscultation. Breath sounds equal bilaterally. GASTROINTESTINAL: Abdomen soft, non-tender, nondistended. Hepatic and splenic margins not palpable. Nontender to palpation. MUSCULOSKELETAL: Extremities without clubbing, cyanosis, or edema. No obvious deformities. Patient is able to demonstrate intact range of motion of bilateral upper extremities and bilateral lower extremities without deformity capillary refill brisk and less than 2 seconds patient has a dressing and walking boot on his right foot/lower extremity NEUROLOGICAL: Awake and alert. GCS is 15. No obvious cranial nerve deficits. Motor grossly within normal limits. Five out of 5 muscle strength in the arms and legs. Normal speech. PSYCHIATRIC: Appropriate mood and affect; insight and judgment normal. Data Data Last Documented VS Vital Signs Date Time Temp Pulse Resp B/P (MAP) Pulse Ox O2 Delivery O2 Flow Rate FiO2 03/20/17 05:29 71 16 86/41 (56) 99 Room Air 03/20/17 03:48 97.6 Orders Orders Basic Metabolic Panel (Bmp) (03/20/17 03:24) Complete Blood Count With Diff (03/20/17 03:24) Prothrombin Time / Inr (Pt) (03/20/17 03:24) Act Partial Throm Time (Ptt) (03/20/17 03:24) Type And Screen (03/20/17 03:24) Alcohol (Ethanol) (03/20/17 03:24) Ct Brain W/O Iv Contrast(Rout) (03/20/17 03:24) Ct Cerv Spine W/O Contrast (03/20/17 03:24) Electrocardiogram (03/20/17 03:24) Iv Access Insert/Monitor (03/20/17 03:24) Ecg Monitoring (03/20/17 03:24) Oximetry (03/20/17 03:24) Oxygen Administration (03/20/17 03:24) Remove Backboard (03/20/17 03:24) Wound Care (03/20/17 03:24) Edez-Rhj-Debldv (Booster) Inj (Boostrix (03/20/17 03:30) Sodium Chloride 0.9% Flush (Ns Flush) (03/20/17 03:30) Drug Screen, Random Urine (03/20/17 03:24) Ankle, Complete (Eeu1gmh) (03/20/17 ) Magnesium (Mg) (03/20/17 03:24) Lidocaine Pf 1% Inj (Xylocaine-Mpf 1% In (03/20/17 04:45) Cefazolin 2 Gm Premix (Ancef 2 Gm Premix (03/20/17 05:30) Sodium Chlor 0.9% 1000 Ml Inj (Ns 1000 M (03/20/17 05:16) Red Blood Cells (Rbc) (03/20/17 05:17) Blood Product Administration (03/20/17 05:17) Sodium Chlor 0.9% 250 Ml Inj (Ns 250 Ml (03/20/17 05:30) Act Partial Throm Time (Ptt) (03/20/17 05:17) Troponin I (03/20/17 04:30) Ct Abd/Pel W Iv Contrast(Rout) (03/20/17 ) Urinary Catheter Insert/Apply (03/20/17 05:46) Blood Gas Venous (Vbg) (03/20/17 05:46) Admit Order (Ed Use Only) (03/20/17 ) Perianesthesia Nurse / Telemetry CARLITOS.Q8H (03/20/17 05:48) Activity Bed Rest (03/20/17 05:48) Notify Dr: Other (03/20/17 05:48) Ct Thorax/ Chest W Iv Contrast (03/20/17 ) Labs Laboratory Tests Test 03/20/17 04:15 03/20/17 05:30 03/20/17 05:50 White Blood Count 4.0 TH/MM3 Red Blood Count 1.54 MIL/MM3 Hemoglobin 4.4 GM/DL Hematocrit 14.0 % Mean Corpuscular Volume 90.8 FL Mean Corpuscular Hemoglobin 28.2 PG Mean Corpuscular Hemoglobin Concent 31.1 % Red Cell Distribution Width 17.5 % Platelet Count 181 TH/MM3 Mean Platelet Volume 7.8 FL Neutrophils (%) (Auto) 58.2 % Lymphocytes (%) (Auto) 20.9 % Monocytes (%) (Auto) 18.7 % Eosinophils (%) (Auto) 1.1 % Basophils (%) (Auto) 1.1 % Neutrophils # (Auto) 2.3 TH/MM3 Lymphocytes # (Auto) 0.8 TH/MM3 Monocytes # (Auto) 0.7 TH/MM3 Eosinophils # (Auto) 0.0 TH/MM3 Basophils # (Auto) 0.0 TH/MM3 CBC Comment DIFF FINAL Differential Comment Prothrombin Time 11.4 SEC Prothromb Time International Ratio 1.1 RATIO Activated Partial Thromboplast Time 23.1 SEC 24.4 SEC Blood Urea Nitrogen MG/DL Creatinine MG/DL Random Glucose MG/DL Calcium Level MG/DL Magnesium Level MG/DL Sodium Level MEQ/L Potassium Level MEQ/L Chloride Level MEQ/L Carbon Dioxide Level MEQ/L Anion Gap MEQ/L Estimat Glomerular Filtration Rate ML/MIN Troponin I NG/ML Ethyl Alcohol Level MG/DL Blood Gas Puncture Site LINE Blood Gas Patient Temperature 98.6 Venous Blood pH 7.28 Venous Blood Partial Pressure CO2 34 mmHg Venous Blood Partial Pressure O2 35 mmHg Venous Blood HCO3 16 mmol/L Venous Blood Oxygen Saturation 48 % Venous Blood Oxygen Content 2.8 Vol % Venous Blood Base Excess -9.9 mmol/L Oxygen Delivery Device ROOM AIR Blood Gas Inspired Oxygen 21 % [facility] Medical Decision Making Medical Screen Exam Complete: Yes Emergency Medical Condition: Yes Medical Record Reviewed: Yes Interpretation(s) VBG: ph: 7.28; HB.[address] 03/20/17323 Signed Impressions: Service Date/Time: Monday, March 20, 2017 03:47 - CONCLUSION: 1. No acute intracranial abnormalities. Right-sided scalp laceration. Antonio Belle MD Cervical Spine CT 03/20/17323 Signed Impressions: Service Date/Time: Monday, March 20, 2017 03:49 - CONCLUSION: 1. No acute findings. Moderate to severe degenerative disc disease. Antonio Belle MD Vital Signs Date Time Temp Pulse Resp B/P (MAP) Pulse Ox O2 Delivery O2 Flow Rate FiO2 03/20/17 03:48 97.6 74 16 112/53 (72) 100 Room Air 03/20/17 03:30 72 112/53 (72) 100 Room Air 03/20/17 03:24 73 18 104/58 (73) 100 03/20/17 03:20 74 16 100 03/20/17 03:20 100 Room Air 03/20/17 03:20 100 Room Air EKG sinus rhythm rate [address] elevation or injury pattern nonspecific ST segment flattening laterally CBC & BMP Diagram 03/20/17 04:15 Calcium Level 8.1 L, Magnesium Level 2.[address] 03/20/17323 Signed Impressions: Service Date/Time: Monday, March 20, 2017 03:47 - CONCLUSION: 1. No acute intracranial abnormalities. Right-sided scalp laceration. Antonio Belle MD Cervical Spine CT 03/20/17323 Signed Impressions: Service Date/Time: Monday, March 20, 2017 03:49 - CONCLUSION: 1. No acute findings. Moderate to severe degenerative disc disease. Antonio Belle MD Differential Diagnosis Minor closed head injury, intracranial bleed, skull fracture, cervical spine sprain strain subluxation fracture or cord compression hip contusion alcohol intoxication Narrative Course With maintained backboard C-spine immobilization patient log rolled from backboard and sent for imaging CT brain noncontrast CT cervical spine noncontrast and left ankle x-ray ordered ; patient refused left ankle x-ray CT brain noncontrast reveals no acute intracranial abnormality and no skull fracture; CT cervical spine reveals no fracture moderate to severe degenerative changes per reading radiologist; cervical collar removed Laceration repaired with kevon see procedure note At 5:30 AM identified to have a hemoglobin of 4.4,3 units of packed cells ordered to be administered stat one on hold; @ units emergency release blood ordered; GCS is 15 blood pressure is 98/57 HR 69; call placed to trauma service CT ab/pel and CT thorax ordered stat; venous bg ordered ph: 7.28 metabolic acidosis c/w hypovolemic shock and hgb 4.0 c/w serum specimen @ 6:15 Dr Nova at the bedside Procedures Procedure Narrative LACERATION LOCATION: Scalp LENGTH: 5.5 cm NUMBER OF STITCHES/KEVON: 17 kevon REPAIR: The area of the laceration was prepped with Betadine and sterilely draped. The laceration was infiltrated with 2% lidocaine plain. The wound was copiously irrigated and explored without evidence of foreign body, tendon injury or neurovascular injury. The wound was closed using kevon. This was a single layer repair. A sterile dressing was applied. The patient was advised to keep the dressing clean and dry. Patient tolerated the procedure well. Tetanus status updated. Physician Communication Physician Communication call placed to Trauma; discussed with Dr Nova Diagnosis Primary Impression: Scalp laceration Qualified Codes: S01.01XA - Laceration without foreign body of scalp, initial encounter Additional Impressions: Minor closed head injury Metabolic acidosis Traumatic hemorrhagic shock Qualified Codes: T79.4XXA - Traumatic shock, initial encounter Anemia Admitting Information Admitting Physician Requests: Admit Livia Doss MD Mar 20, 2017 04:21
--- NOTE | 2017-03-20 04:27 | RADRPT ---
EXAM DATE/TIME: 03/20/2017 03:47 [facility] COMPARISON: No previous studies available for comparison. INDICATIONS : Trauma; fall. Lacerations to the top and back of patient's head; he hit it against a bookcase. RADIATION DOSE: 56.35 CTDIvol (mGy) MEDICAL HISTORY : Hypertension. Renal insufficiency. Cardiovascular diseaseHypertension SURGICAL HISTORY : carotid surgery ENCOUNTER: Initial ACUITY: 1 day PAIN SCALE: 3/10 LOCATION: cranial TECHNIQUE: Multiple contiguous axial images were obtained of the head. Using automated exposure control and adj ustment of the mA and/or kV according to patient size, radiation dose was kept as low as reasonably a chievable to obtain optimal diagnostic quality images. DICOM format image data is available electro nically for review and comparison. FINDINGS: CEREBRUM: The ventricles are normal for age. No evidence of midline shift, mass lesion, hemorrhage or acute in farction. No extra-axial fluid collections are seen. POSTERIOR FOSSA: The cerebellum and brainstem are intact. The 4th ventricle is midline. The cerebellopontine angle i s unremarkable. EXTRACRANIAL: The visualized portion of the orbits is intact. Right-sided scalp laceration. SKULL: The calvaria is intact. No evidence of skull fracture. CONCLUSION: 1. No acute intracranial abnormalities. Right-sided scalp laceration. Antonio Belle MD on March 20, 2017 at 4:24 Board Certified Radiologist. This report was verified electronically.
--- NOTE | 2017-03-20 04:29 | RADRPT ---
EXAM DATE/TIME: 03/20/2017 03:49 [facility] COMPARISON: No previous studies available for comparison. INDICATIONS : Trauma; fall. RADIATION DOSE: 28.35 CTDIvol (mGy) MEDICAL HISTORY : Cardiovascular disease. Renal insufficiency. Hypertension.BPH SURGICAL HISTORY : carotid surgery ENCOUNTER: Initial ACUITY: 1 week PAIN SCALE: 3/10 LOCATION: neck TECHNIQUE: Volumetric scanning of the cervical spine was performed. Multiplanar reconstructions in the sagittal, coronal and oblique axial planes were performed. Using automated exposure control and adjustment o f the mA and/or kV according to patient size, radiation dose was kept as low as reasonably achievable to obtain optimal diagnostic quality images. DICOM format image data is available electronically f or review and comparison. FINDINGS: No acute fracture or subluxation. Moderate to severe degenerative disc disease with prominent osteoph ytes at C4-5-6-7 resulting in mild AP canal stenosis. No prevertebral soft tissue swelling. Minimal d egenerative retrolisthesis of C4 on C5. CONCLUSION: 1. No acute findings. Moderate to severe degenerative disc disease. Antonio Belle MD on March 20, 2017 at 4:25 Board Certified Radiologist. This report was verified electronically.
[2017-03-20 04:33] LABS: AUTOMATED NEUTROPHIL # 2.3 TH/MM3 (1.8-7.7); BASOPHIL % 1.1 % (0.0-2.0); EOSINOPHIL % 1.1 % (0.0-4.0); LYMPH % 20.9 % (9.0-44.0); LYMPHOCYTE # 0.8 TH/MM3 (1.0-4.8); MEAN CELL VOLUME 90.8 FL (80.0-100.0); MEAN CORPUSCULAR HEMOGLOBIN 28.2 PG (27.0-34.0); MEAN CORPUSCULAR HGB CONC 31.1 % (32.0-36.0); MEAN PLATELET VOLUME 7.8 FL (7.0-11.0); MONO % 18.7 % (0.0-8.0); MONOCYTE # 0.7 TH/MM3 (0-0.9); NEUT % 58.2 % (16.0-70.0); PLATELET COUNT 181 TH/MM3 (150-450); RED BLOOD COUNT 1.54 MIL/MM3 (4.50-5.90); RED CELL DISTRIBUTION WIDTH 17.5 % (11.6-17.2)
[2017-03-20 04:35] LABS: INTERNATIONAL NORMALIZED RATIO 1.1 RATIO; PROTHROMBIN TIME - PATIENT 11.4 SEC (9.8-11.6)
[2017-03-20] MEDS ORDERED: LIDOCAINE HCL 1% PF 10 ML VIAL INFIL ONE (04:45)
[2017-03-20] MEDS ORDERED: SODIUM CHLOR 0.9% 1000 ML INJ 1,000 ML IV SCH (05:16)
[2017-03-20 05:18] LABS: HEMOGLOBIN 4.4 GM/DL (13.0-17.0)
[2017-03-20] MEDS ORDERED: SODIUM CHLOR 0.9% 250 ML INJ 250 ML IV ONE (05:30)
[2017-03-20] MEDS ORDERED: ceFAZolin 2 GM PREMIX 50 ML IV ONE (05:30)
[2017-03-20] MEDS ORDERED: MAGNESIUM HYDROXIDE SUSP 30 ML CUP PO PRN (06:15)
[2017-03-20] MEDS ORDERED: ONDANSETRON HCL 4 MG/2 ML VIAL IV PUSH PRN (06:15)
[2017-03-20] MEDS ORDERED: SENNOSIDES 8.6 MG TAB PO PRN (06:15)
[2017-03-20] MEDS ORDERED: MISCELLANEOUS NURSING INFORMATION XX SCH (06:15)
[2017-03-20] MEDS ORDERED: CHLORHEXIDINE GLUCONATE 2 % 1 PACK (2 CLOTHS) TOP PRN (06:15)
[2017-03-20] MEDS ORDERED: BISACODYL 10 MG SUPP RECTAL PRN (06:15)
[2017-03-20] MEDS ORDERED: LACTULOSE SYRUP 20 GM/30 ML CUP PO PRN (06:15)
[2017-03-20] MEDS ORDERED: FUROSEMIDE 20 MG/2 ML VIAL IV PUSH ONE (06:30)
--- NOTE | 2017-03-20 06:43 | HHI.HP ---
History of Present Illness Primary Care Physician Jeffry Alonso DO Admission Diagnosis hypovolemic hypotesion; scalp laceration; minor CHI Diagnoses: History of Present Illness 77-year-old male on Plavix fell early in the morning sustained open scalp wound right temporoparietal area, he was hypotensive at time EMS arrived he received 500 cc of fluid, his pressure on arrival was in the range of 90 another 500 cc of fluid was given by the ER physician. His hemoglobin showed to be 4 to that blood transfusion was started started by the ER physician. Also the open wound was closed with kevon. At the time of my arrival patient is awake alert hemodynamically with the blood pressure around 100 no active bleeding in the process of receiving [address] scan of the abdomen and pelvis and chest was ordered to rule out occult injuries. Review of Systems Constitutional: DENIES: Diaphoretic episodes, Fatigue, Fever, Weight gain, Weight loss, Chills, Dizziness, Change in appetite, Night Sweats Endocrine: DENIES: Heat/cold intolerance, Polydipsia, Polyuria, Polyphagia Eyes: DENIES: Blurred vision, Diplopia, Eye inflammation, Eye pain, Vision loss , Photosensitivity, Double Vision Ears, nose, mouth, throat: DENIES: Tinnitus, Hearing loss, Vertigo, Nasal discharge, Oral lesions, Throat pain, Hoarseness, Ear Pain, Running Nose, Epistaxis, Sinus Pain, Toothache, Odynophagia Respiratory: DENIES: Apneas, Cough, Snoring, Wheezing, Hemoptysis, Sputum production, Shortness of breath Cardiovascular: DENIES: Chest pain, Palpitations, Syncope, Dyspnea on Exertion , PND, Lower Extremity Edema, Orthopnea, Claudication Integumentary: DENIES: Abnormal pigmentation, Nail changes, Pruritus, Rash Hematologic/lymphatic: DENIES: Bruising, Lymphadenopathy Immunologic/allergic: DENIES: Eczema, Urticaria Past Family Social History Allergies: Coded Allergies: No Known Allergies (Verified Allergy, Unknown, 01/12/17) Past Medical History Dyslipidemia, PVD Past Surgical History Multiple stents, CEA Family History None Social History No smoking Physical Exam Vital Signs Vital Signs Date Time Temp Pulse Resp B/P (MAP) Pulse Ox O2 Delivery O2 Flow Rate FiO2 03/20/17 06:27 96.5 74 14 105/64 99 03/20/17 06:05 97.8 74 20 103/52 97 03/20/17 05:29 71 16 86/41 (56) 99 Room Air 03/20/17 03:48 97.6 74 16 112/53 (72) 100 Room Air 03/20/17 03:30 72 112/53 (72) 100 Room Air 03/20/17 03:24 73 18 104/58 (73) 100 03/20/17 03:20 74 16 100 03/20/17 03:20 100 Room Air 03/20/17 03:20 100 Room Air Physical Exam GENERAL: This is a well-nourished, well-developed patient, in no apparent distress., Pale appearing SKIN: Cool and dry. HEAD: About 5 cm open wound right temporoparietal area stapled s. EYES: Pupils equal round and reactive. ENT: Nose without bleeding,. Airway patent. NECK: Trachea midline. Supple, nontender CARDIOVASCULAR: Regular rate and rhythm without murmurs, gallops, or rubs. RESPIRATORY: Clear to auscultation. Breath sounds equal bilaterally. No wheezes , rales, or rhonchi. GASTROINTESTINAL: Abdomen soft, non-tender, No guarding. MUSCULOSKELETAL: Extremities without clubbing, cyanosis, or edema. No joint tenderness,swelling NEUROLOGICAL: Awake and alert. Cranial nerves II through XII intact. Motor and sensory grossly within normal limits. Five out of 5 muscle strength in all muscle groups. Normal speech. Laboratory Laboratory Tests Test 03/20/17 04:15 03/20/17 05:30 03/20/17 05:50 White Blood Count 4.0 Red Blood Count 1.54 Hemoglobin 4.4 Hematocrit 14.0 Mean Corpuscular Volume 90.8 Mean Corpuscular Hemoglobin 28.2 Mean Corpuscular Hemoglobin Concent 31.1 Red Cell Distribution Width 17.5 Platelet Count 181 Mean Platelet Volume 7.8 Neutrophils (%) (Auto) 58.2 Lymphocytes (%) (Auto) 20.9 Monocytes (%) (Auto) 18.7 Eosinophils (%) (Auto) 1.1 Basophils (%) (Auto) 1.1 Neutrophils # (Auto) 2.3 Lymphocytes # (Auto) 0.8 Monocytes # (Auto) 0.7 Eosinophils # (Auto) 0.0 Basophils # (Auto) 0.0 CBC Comment DIFF FINAL Differential Comment Prothrombin Time 11.4 Prothromb Time International Ratio 1.1 Activated Partial Thromboplast Time 23.1 24.4 Blood Urea Nitrogen 39 Creatinine 1.48 Random Glucose 111 Calcium Level 8.1 Magnesium Level 2.2 Sodium Level 145 Potassium Level 4.1 Chloride Level 114 Carbon Dioxide Level 15.8 Anion Gap 15 Estimat Glomerular Filtration Rate 46 Troponin I LESS THAN 0.02 Ethyl Alcohol Level 119 Result Diagram: 03/20/1741403/20/17414 Caprini VTE Risk Assessment Caprini VTE Risk Assessment: Mod/High Risk (score >= 2) VTE Pharm Contraindication: High risk for bleeding Caprini Risk Assessment Model Point Value = 1 Point Value = 2 Point Value = 3 Point Value = 5 Age 41-60 Minor surgery BMI > 25 kg/m2 Swollen legs Varicose veins or History of unexplained or recurrent spontaneous Oral contraceptives or hormone replacement Sepsis (< 1 month) Serious lung disease, including pneumonia (< 1 month) Abnormal pulmonary function Acute myocardial infarction Congestive heart failure (< 1 month) History of inflammatory bowel disease Medical patient at bed rest Age 61-74 Arthroscopic surgery Major open surgery (> 45 min) Laparoscopic surgery (> 45 min) Malignancy Confined to bed (> 72 hours) Immobilizing plaster cast Central venous access Age >= 75 History of VTE Family history of VTE Factor V Leiden Prothrombin [id number] Lupus anticoagulant Anticardiolipin antibodies Elevated serum homocysteine Heparin-induced thrombocytopenia Other congenital or acquired thrombophilia Stroke (< 1 month) Elective arthroplasty Hip, pelvis, or leg fracture Acute spinal cord injury (< 1 month) Prophylaxis Regimen Total Risk Factor Score Risk Level Prophylaxis Regimen 0-1 Low Early ambulation 2 Moderate Order ONE of the following: *Sequential Compression Device (SCD) *Heparin 5000 units SQ BID 3-4 Higher Order ONE of the following medications: *Heparin 5000 units SQ TID *Enoxaparin/Lovenox 40 mg SQ daily (WT < 150 kg, CrCl > 30 mL/min) *Enoxaparin/Lovenox 30 mg SQ daily (WT < 150 kg, CrCl > 10-29 mL/min) *Enoxaparin/Lovenox 30 mg SQ BID (WT < 150 kg, CrCl > 30 mL/min) AND/OR *Sequential Compression Device (SCD) 5 or more Highest Order ONE of the following medications: *Heparin 5000 units SQ TID (Preferred with Epidurals) *Enoxaparin/Lovenox 40 mg SQ daily (WT < 150 kg, CrCl > 30 mL/min) *Enoxaparin/Lovenox 30 mg SQ daily (WT < 150 kg, CrCl > 10-29 mL/min) *Enoxaparin/Lovenox 30 mg SQ BID (WT < 150 kg, CrCl > 30 mL/min) AND *Sequential Compression Device (SCD) Assessment and Plan Assessment and Plan Open wound likely, causing hemorrhagic shock on anticoagulated the patient Admit patient to IMC Transfuse total of 4 units of blood with 20 of Lasix in between Obtain CT scan abdomen and pelvis with IV contrast to rule out injuries Zenobia Nova MD Mar 20, 2017 06:43
[2017-03-20] MEDS ORDERED: IOHEXOL 350 MG/ML 10 ML VIAL (for RAD DIAG) IVCONTRAST ONE (06:44)
--- NOTE | 2017-03-20 06:54 | RADRPT ---
EXAM DATE/TIME: 03/20/2017 06:32 [facility] COMPARISON: No previous studies available for comparison. INDICATIONS : Trauma; fall. IV CONTRAST: 94 cc Omnipaque 350 (iohexol) IV ; Cumulative dose for multiple exams. ORAL CONTRAST: No oral contrast ingested. RADIATION DOSE: 10.11 CTDIvol (mGy) ; Combined studies - Thorax/Abdomen/Pelvis MEDICAL HISTORY : Hypertension. Renal insufficiency. Cardiovascular diseaseBPH SURGICAL HISTORY : Carotid surgery ENCOUNTER: Initial ACUITY: 1 day PAIN SCALE: 0/10 LOCATION: abdomen TECHNIQUE: Volumetric scanning of the abdomen and pelvis was performed. Using automated exposure control and ad justment of the mA and/or kV according to patient size, radiation dose was kept as low as reasonably achievable to obtain optimal diagnostic quality images. DICOM format image data is available electro nically for review and comparison. FINDINGS: No acute findings in the liver, spleen, adrenals, kidneys or pancreas. There is fatty infiltration of the liver. No calcified gallstones or biliary ductal dilatation. Atherosclerotic aorta without aneur ysm. Osborne catheter in decompressed bladder. Multiple mild compression deformities in the upper lumba r spine which appear chronic. CONCLUSION: 1. Negative for acute traumatic injury within the abdomen and pelvis. Mild smooth endplate compressio n deformities at T12-L3 which appear chronic. Remote right acetabular fracture and pubic rami fractur es. Antonio Belle MD on March 20, 2017 at 6:47 Board Certified Radiologist. This report was verified electronically.
--- NOTE | 2017-03-20 06:56 | RADRPT ---
EXAM DATE/TIME: 03/20/2017 06:32 [facility] COMPARISON: No previous studies available for comparison. INDICATIONS : Trauma; fall. IV CONTRAST: 94 cc Omnipaque 350 (iohexol) IV ; Cumulative dose for multiple exams. RADIATION DOSE: 10.11 CTDIvol (mGy) ; Combined studies - Thorax/Abdomen/Pelvis MEDICAL HISTORY : Hypertension. Renal insufficiency. Cardiovascular diseaseBPH SURGICAL HISTORY : Carotid surgery ENCOUNTER: Initial ACUITY: 1 day PAIN SCALE: 0/10 LOCATION: chest TECHNIQUE: Volumetric scanning of the chest was performed. Using automated exposure control and adjustment of t he mA and/or kV according to patient size, radiation dose was kept as low as reasonably achievable to obtain optimal diagnostic quality images. DICOM format image data is available electronically for review and comparison. Follow-up recommendations for detected pulmonary nodules are based at a minimum on nodule size and pa tient risk factors according to Fleischner Society Guidelines. FINDINGS: There is dependent atelectasis in the lungs. Mild emphysema. No pneumothorax or pleural effusion. No pericardial effusion. No mediastinal hematoma or traumatic aortic injury. Dense coronary artery calcifications. No acute emmy ny abnormalities. CONCLUSION: 1. No acute findings. Dependent atelectasis in the lungs. Dense coronary calcifications. Antonio Belle MD on March 20, 2017 at 6:53 Board Certified Radiologist. This report was verified electronically.
[2017-03-20] MEDS ORDERED: HALOPERIDOL LACTATE 5 MG/ML AMP IV PUSH PRN (07:30)
[2017-03-20 07:37] LABS: BICARBONATE 16.1 MEQ/L (21.0-32.0); CREATININE 1.53 MG/DL (0.60-1.30); MAGNESIUM 2.1 MG/DL (1.5-2.5)
[2017-03-20 07:41] LABS: TROPONIN I 0.03 NG/ML (0.02-0.05)
[2017-03-20] MEDS: LACTATED RINGER'S 1000 ML INJ 1,000 ML IV SCH ×3 (08:53→21:10)
[2017-03-20] MEDS: DOCUSATE SODIUM 50 MG/SENNA 8.6 MG TAB PO SCH ×2 (08:55→21:04)
[2017-03-20] MEDS: FAMOTIDINE 20 MG/2 ML VIAL IV PUSH SCH ×2 (08:56→21:05)
[2017-03-20] MEDS ORDERED: FAMOTIDINE 20 MG/2 ML VIAL IV PUSH SCH (09:00)
[2017-03-20] MEDS ORDERED: oxyCODONE/ACETAMINOPHEN 5 MG/325 MG TAB PO PRN (09:45)
[2017-03-20] MEDS ORDERED: NON-FORMULARY DRUG (Omega-3 Fatty Acids (Fish Oil 1200 mg) 1 CAP) PO SCH (09:45)
[2017-03-20] MEDS: MULTIVITAMIN INJ 10 ML, THIAMINE INJ 100 MG, FOLIC ACID INJ 1 MG in SODIUM CHLORID 0.9%... IV SCH (09:55)
[2017-03-20] MEDS: COLLAGENASE OINT 30 GM TUBE TOPICAL SCH (11:00)
[2017-03-20] MEDS: GEMFIBROZIL 600 MG TAB PO SCH ×2 (11:41→16:23)
[2017-03-20] MEDS: TAMSULOSIN HCL 0.4 MG CAP PO SCH (11:41)
[2017-03-20] MEDS: FINASTERIDE 5 MG TAB PO SCH (11:41)
[2017-03-20] MEDS: amLODIPine BESYLATE 5 MG TAB PO SCH (11:41)
[2017-03-20 12:52] LABS: HEMATOCRIT 22.7 % (39.0-51.0); HEMOGLOBIN 7.7 GM/DL (13.0-17.0)
[2017-03-20] MEDS ORDERED: MAGN30S PO (18:27)
[2017-03-20] MEDS ORDERED: PERI PO (18:27)
[2017-03-20 18:51] LABS: HEMATOCRIT 24.8 % (39.0-51.0); HEMOGLOBIN 8.7 GM/DL (13.0-17.0)
[2017-03-21] VITALS (8 sets, daily range): BP systolic 122–165; BP diastolic 58–78; PULSE 67–77; RESP 16–18; TEMP 97.7–98.3; O2SAT 92–97
[2017-03-21] MEDS ORDERED: CHLORHEXIDINE GLUCONATE 2 % 1 PACK (2 CLOTHS) TOP SCH (04:00)
[2017-03-21] MEDS: GEMFIBROZIL 600 MG TAB PO SCH ×2 (06:06→17:41)
[2017-03-21 06:10] LABS: AUTOMATED NEUTROPHIL # 4.6 TH/MM3 (1.8-7.7); BASOPHIL % 0.6 % (0.0-2.0); EOSINOPHIL # 0.1 TH/MM3 (0-0.4); EOSINOPHIL % 1.7 % (0.0-4.0); HEMATOCRIT 23.1 % (39.0-51.0); HEMOGLOBIN 8.2 GM/DL (13.0-17.0); MEAN CORPUSCULAR HEMOGLOBIN 30.3 PG (27.0-34.0); MEAN CORPUSCULAR HGB CONC 35.6 % (32.0-36.0); MEAN PLATELET VOLUME 8.1 FL (7.0-11.0); MONO % 15.8 % (0.0-8.0); MONOCYTE # 1.1 TH/MM3 (0-0.9); NEUT % 66.9 % (16.0-70.0); PLATELET COUNT 126 TH/MM3 (150-450); RED BLOOD COUNT 2.72 MIL/MM3 (4.50-5.90); RED CELL DISTRIBUTION WIDTH 16.2 % (11.6-17.2); WHITE BLOOD COUNT 6.9 TH/MM3 (4.0-11.0)
[2017-03-21 06:32] LABS: BICARBONATE 25.6 MEQ/L (21.0-32.0); CALCIUM 8.3 MG/DL (8.5-10.1); CREATININE 1.33 MG/DL (0.60-1.30)
[2017-03-21] MEDS: DOCUSATE SODIUM 50 MG/SENNA 8.6 MG TAB PO SCH ×2 (08:52→21:18)
[2017-03-21] MEDS: amLODIPine BESYLATE 5 MG TAB PO SCH (08:52)
[2017-03-21] MEDS: TAMSULOSIN HCL 0.4 MG CAP PO SCH (08:52)
[2017-03-21] MEDS: FINASTERIDE 5 MG TAB PO SCH (08:53)
[2017-03-21] MEDS: MULTIVITAMIN INJ 10 ML, THIAMINE INJ 100 MG, FOLIC ACID INJ 1 MG in SODIUM CHLORID 0.9%... IV SCH (08:53)
[2017-03-21] MEDS: FAMOTIDINE 20 MG/2 ML VIAL IV PUSH SCH ×2 (08:54→21:18)
[2017-03-21] MEDS: COLLAGENASE OINT 30 GM TUBE TOPICAL SCH (09:00)
--- NOTE | 2017-03-21 09:20 | EKG ---
Date Performed: 03/20/2017 Time Performed: 04:30:37 PTAGE: 77 years EKG: Sinus rhythm WITH OCCASIONAL SUPRAVENTRICULAR PREMATURE COMPLEXES MODERATE ST DEPRESSION ABNORMAL ECG PREVIOUS TRACING : 12/22/2016 09.40 Compared to prior tracing, ST depressions now noted DOCTOR: Peng Carver Interpretating Date/Time 03/21/2017 09:20:21
[2017-03-21] MEDS ORDERED: SODIUM CHLOR 0.9% 250 ML INJ 250 ML IV ONE (11:30)
--- NOTE | 2017-03-21 11:33 | HHI.PR ---
Subjective Subjective Notes PTD: 1 Patient lying in bed. No distress noted. Patient states, "I am doing okay." Patient states, "I live by myself. I do have nursing care and a physical therapist at home." Objective Vitals/I&O Vital Signs Date Time Temp Pulse Resp B/P (MAP) Pulse Ox O2 Delivery O2 Flow Rate FiO2 03/21/17 08:41 97.8 67 16 165/74 (104) 93 03/20/17 05:29 Room Air Labs Laboratory Tests Test 03/20/17 12:25 03/20/17 18:27 03/21/17 05:30 Hemoglobin 7.7 8.7 8.2 Hematocrit 22.7 24.8 23.1 White Blood Count 6.9 Red Blood Count 2.72 Mean Corpuscular Volume 85.0 Mean Corpuscular Hemoglobin 30.3 Mean Corpuscular Hemoglobin Concent 35.6 Red Cell Distribution Width 16.2 Platelet Count 126 Mean Platelet Volume 8.1 Neutrophils (%) (Auto) 66.9 Lymphocytes (%) (Auto) 15.0 Monocytes (%) (Auto) 15.8 Eosinophils (%) (Auto) 1.7 Basophils (%) (Auto) 0.6 Neutrophils # (Auto) 4.6 Lymphocytes # (Auto) 1.0 Monocytes # (Auto) 1.1 Eosinophils # (Auto) 0.1 Basophils # (Auto) 0.0 CBC Comment DIFF FINAL Differential Comment Blood Urea Nitrogen 35 Creatinine 1.33 Random Glucose 94 Calcium Level 8.3 Sodium Level 141 Potassium Level 4.0 Chloride Level 108 Carbon Dioxide Level 25.6 Anion Gap 7 Estimat Glomerular Filtration Rate 52 Radiology Last [address] 03/20/17323 Signed Impressions: Service Date/Time: Monday, March 20, 2017 03:47 - CONCLUSION: 1. No acute intracranial abnormalities. Right-sided scalp laceration. Antonio Belle MD Cervical Spine CT 03/20/17323 Signed Impressions: Service Date/Time: Monday, March 20, 2017 03:49 - CONCLUSION: 1. No acute findings. Moderate to severe degenerative disc disease. Antonio Belle MD Chest CT 03/20/17 0000 Signed Impressions: Service Date/Time: Monday, March 20, 2017 06:32 - CONCLUSION: 1. No acute findings. Dependent atelectasis in the lungs. Dense coronary calcifications. Antonio Belle MD Abdomen/Pelvis CT 03/20/17 0000 Signed Impressions: Service Date/Time: Monday, March 20, 2017 06:32 - CONCLUSION: 1. Negative for acute traumatic injury within the abdomen and pelvis. Mild smooth endplate compression deformities at T12-L3 which appear chronic. Remote right acetabular fracture and pubic rami fractures. Antonio Belle MD Narrative Exam GENERAL: This is a 77-year-old male lying in bed. No distress noted. SKIN: Warm and dry. Right ankle wound wrapped with Ezequiel bandage. HEAD: Normocephalic. Right scalp laceration with kevon in place. LAUREN. EYES: PERRLA ENT: No nasal bleeding or discharge. Mucous membranes pink and moist. NECK: Trachea midline. No JVD. CARDIOVASCULAR: Regular rate and rhythm. RESPIRATORY: No accessory muscle use. Lungs are clear to auscultation. Breath sounds equal bilaterally. No distress or dyspnea. GASTROINTESTINAL: BS + x 4 quads. Abdomen soft, non-tender, nondistended. MUSCULOSKELETAL: Extremities without cyanosis, or edema. + peripheral pulses x 4 extremities. Warm with good capillary refill and sensation. MAEW. NEUROLOGICAL: Awake and alert. Normal speech and pattern. A/P Problem List: (1) Scalp laceration ICD Codes: S01.01XA - Laceration without foreign body of scalp, initial encounter Status: Acute (2) Traumatic hemorrhagic shock ICD Codes: T79.4XXA - Traumatic shock, initial encounter Status: Acute Assessment and Plan IGIUGIG: This is a 77-year-old male who sustained a fall. He fell from a standing position striking his head on a table edge. + LOC. He waited several hours before calling EVAC. + ETOH = 100. GCS equals 15. He is on Plavix and aspirin at home. INJURIES: Scalp lac (17 kevon) Concussion Hemorrhagic shock PMHx: Multiple falls, HTN, HLD, PVD, BPH, glaucoma, arthritis, CAD, carotid endarterectomy, right femoral endarterectomy angioplasty (2009), right second toe amputation, tobacco use, ETOH abuse Procedures: Consults: [facility]. Hospitalist. Wound care nurse. Case management. Diet: Heart healthy diet. Tolerating po diet. Encourage good po intake with each meal. Pulmonary: Encourage good pulmonary toileting. IS at bedside and pt encouraged to use. Rationale for use explained to patient, and verbalized understanding. H&H equals 8.2 / 23.1 Transfuse 1 unit packed red blood cells 1 today Follow up labs in the AM. PAIN Management: Percocet 5 mg every 4 hours. Behavior: Librium 5 mg QID. Haldol 5 mg every 6 hours PRN. Activity: OOB. PT ordered. GI prophylaxis: Pepcid 10 mg BID IV. Bowel regimen: Trish-colace, MOM PRN. Lactulose PRN. Senna PRN. Bisacodyl PRN. LBM: 0 DVT prophylaxis: Mechanical VTE with SCDs. Chemical management TBD. DC Planning: Case management consulted for assistance with final discharge disposition. Awaiting PT evaluation. Plan for discharge tomorrow. Emotional support provided to patient at bedside and plan of care discussed. Discussed with RN at bedside. Discussed pt condition and plan of care with collaborating trauma surgeon. Patient is hemodynamically stable and being managed on the med/surg floor. The trauma team will round each day, and evaluate plan of care on a daily basis. Scalp lac (17 kevon) Concussion Hemorrhagic shock Wash scalp daily with soap and water. Pat dry. Leave open to air. Serial neuro checks patient A&O CT brain for any change in neurological status Vital signs stable H&H equals 8.2 / 23.1 Transfuse 1 unit packed red blood cells 1 today Follow-up labs in the morning PMHx: Multiple falls, HTN, HLD, PVD, BPH, glaucoma, arthritis, CAD, carotid endarterectomy, right femoral endarterectomy angioplasty (2009), right second toe amputation, tobacco use, ETOH abuse Hospitalist consult to assist in medical management Norvasc 2.5 mg daily Proscar 5 mg daily Flomax 0.4 mg daily Chronic wound right lower extremity Wound care nurse following Remarks Patient seen and examined with the nurse practitioner, hemoglobin is today 8.7 he is somewhat normal he has no complaints, will proceed with transfusion of 1 more unit of blood ambulate the patient anticipate discharge 24 hours Problem Qualifiers (1) Scalp laceration: Qualified Codes: S01.01XA - Laceration without foreign body of scalp, initial encounter (2) Traumatic hemorrhagic shock: Qualified Codes: T79.4XXA - Traumatic shock, initial encounter Jessica Howard Mar 21, 2017 11:33 Zenobia Nova MD Mar 21, 2017 16:02
[2017-03-21] MEDS ORDERED: FUROSEMIDE 20 MG/2 ML VIAL IV PUSH ONE (12:00)
[2017-03-21] MEDS: FERROUS SULFATE 325 MG (65 MG ELEMENTAL IRON) TAB PO SCH (13:17)
[2017-03-22] VITALS: BP 125/59; PULSE 70; RESP 17; TEMP 98.3; O2SAT 96
[2017-03-22 04:00] VITALS: BP 142/65; PULSE 64; RESP 17; TEMP 98; O2SAT 92
[2017-03-22] MEDS: GEMFIBROZIL 600 MG TAB PO SCH (05:58)
[2017-03-22 06:51] LABS: AUTOMATED NEUTROPHIL # 5.5 TH/MM3 (1.8-7.7); BASOPHIL % 0.5 % (0.0-2.0); EOSINOPHIL # 0.3 TH/MM3 (0-0.4); EOSINOPHIL % 3.4 % (0.0-4.0); HEMATOCRIT 27.1 % (39.0-51.0); HEMOGLOBIN 9.3 GM/DL (13.0-17.0); LYMPH % 13.4 % (9.0-44.0); LYMPHOCYTE # 1.1 TH/MM3 (1.0-4.8); MEAN CELL VOLUME 85.3 FL (80.0-100.0); MEAN CORPUSCULAR HEMOGLOBIN 29.3 PG (27.0-34.0); MEAN CORPUSCULAR HGB CONC 34.3 % (32.0-36.0); MONO % 13.4 % (0.0-8.0); MONOCYTE # 1.1 TH/MM3 (0-0.9); NEUT % 69.3 % (16.0-70.0); PLATELET COUNT 127 TH/MM3 (150-450); RED BLOOD COUNT 3.17 MIL/MM3 (4.50-5.90); RED CELL DISTRIBUTION WIDTH 16.4 % (11.6-17.2)
[2017-03-22 07:17] LABS: BICARBONATE 27.2 MEQ/L (21.0-32.0); CALCIUM 8.6 MG/DL (8.5-10.1); CREATININE 1.22 MG/DL (0.60-1.30)
--- NOTE | 2017-03-22 08:03 | PD.CONS ---
[facility] By [facility] Reason for Consult Medical management Primary Care Physician Jeffry Alonso DO Diagnoses: History of Present Illness Mr. Cross is a pleasant 77-year-old male with a history of the femoral vascular disease who fell as he got up to go to the bathroom at around 1 AM on the day of presentation. He fell against a bookshelf and injured his scalp. He sustained an open scalp wound dry temporal parietal area. He was able to call 911. At the time of EMS arrival, patient was hypotensive and received total of 1 L of fluid. His hemoglobin was 4.4 when he came to the emergency department. He received multiple units of blood transfusion. Trauma surgery evaluated patient. Patient underwent scalp laceration was repaired in the emergency department. CT abdomen pelvis and chest did not reveal any acute trauma or bleed. At the time of this interview on 03/22/2017, patient is currently doing well. Denies any chest pain, shortness of breath, fever or chills. He wants to go home. He denies any recent dark stool or blood in the stool. Patient reports feeling dizzy and lightheaded and fatigued for the last 3-4 weeks prior to this admission. No other obvious bleeding. He has a primary care physician. Review of Systems Except as stated in HPI: all other systems reviewed are Neg Past Family Social History Allergies: Coded Allergies: No Known Allergies (Verified Allergy, Unknown, 01/12/17) Past Medical History Peripheral vascular disease Hypertension Hyperlipidemia BPH Past Surgical History Vascular surgery in December [address] Ortega Toe amputation on the right foot in January 2017 Reported Medications Plavix (Clopidogrel Bisulfate) 75 Mg Tab 75 Mg PO DAILY Centrum (Multiple Vitamins W/ Minerals) 1 Chew 1 Tab CHEW DAILY Fish Oil 1200 mg ([place]-3 Fatty Acids) 360 Mg-1,200 Mg Cap 1 Cap PO DAILY Voltaren (Diclofenac Sodium) 1 % Gel..gram. 1 Appful TOPICAL BID Santyl Topical (Collagenase) 250 Unit/Gm Oint 1 Applic TOPICAL DAILY Aspirin 325 Mg Tab 325 Mg PO DAILY Amlodipine (Amlodipine Besylate) 2.5 Mg Tab 2.5 Mg PO DAILY Finasteride 5 Mg Tab 5 Mg PO DAILY Do not crush. Tamsulosin (Tamsulosin HCl) 0.4 Mg Cap 0.4 Mg PO DAILY Gemfibrozil 600 Mg Tab 600 Mg PO BIDAC Take 30 minutes prior to breakfast and dinner. Family History Father had a stroke. Mother had heart disease Social History Patient smokes about 9 cigarettes a day. Drinks 3 drinks per day. Denies using illicit drugs. Physical Exam Vital Signs Vital Signs Date Time Temp Pulse Resp B/P (MAP) Pulse Ox O2 Delivery O2 Flow Rate FiO2 03/22/17 04:00 98.0 64 17 142/65 (90) 92 03/22/17 00:00 98.3 70 17 125/59 (81) 96 03/21/17 20:00 97.8 76 18 122/58 (79) 94 03/21/17 17:40 97.7 77 16 127/78 96 03/21/17 16:00 97.8 69 18 151/67 (95) 94 03/21/17 14:20 97.8 69 18 151/67 94 03/21/17 12:17 97.7 72 18 127/60 (82) 97 03/21/17 08:41 97.8 67 16 165/74 (104) 93 Physical Exam GENERAL: This is a well-nourished, well-developed patient, in no apparent distress. SKIN: No rashes, ecchymoses or lesions. Warm and dry. HEAD: Normocephalic. Status post laceration repair on the scalp. EYES: Pupils equal round and reactive. No injection or drainage. ENT: Nose without bleeding, purulent drainage or septal hematoma. Airway patent. NECK: Trachea midline. No lymphadenopathy. Supple, nontender, no meningeal signs. CARDIOVASCULAR: Regular rate and rhythm without murmurs, gallops, or rubs. No JVD. RESPIRATORY: Clear to auscultation. Breath sounds equal bilaterally. No wheezes , rales, or rhonchi. GASTROINTESTINAL: Abdomen soft, non-tender, nondistended. No guarding. MUSCULOSKELETAL: Extremities without clubbing, cyanosis, or edema. Right lower extremity wrapped in Ezequiel dressing. NEUROLOGICAL: Awake and alert. Cranial nerves II through XII intact. No focal neurological deficits. Normal speech. Laboratory Laboratory Tests Test 03/22/17 05:03 White Blood Count 8.0 Red Blood Count 3.17 Hemoglobin 9.3 Hematocrit 27.1 Mean Corpuscular Volume 85.3 Mean Corpuscular Hemoglobin 29.3 Mean Corpuscular Hemoglobin Concent 34.3 Red Cell Distribution Width 16.4 Platelet Count 127 Mean Platelet Volume 8.0 Neutrophils (%) (Auto) 69.3 Lymphocytes (%) (Auto) 13.4 Monocytes (%) (Auto) 13.4 Eosinophils (%) (Auto) 3.4 Basophils (%) (Auto) 0.5 Neutrophils # (Auto) 5.5 Lymphocytes # (Auto) 1.1 Monocytes # (Auto) 1.1 Eosinophils # (Auto) 0.3 Basophils # (Auto) 0.0 CBC Comment DIFF FINAL Differential Comment Blood Urea Nitrogen 30 Creatinine 1.22 Random Glucose 84 Calcium Level 8.6 Sodium Level 139 Potassium Level 3.5 Chloride Level 105 Carbon Dioxide Level 27.2 Anion Gap 7 Estimat Glomerular Filtration Rate 58 Result Diagram: 03/22/17 0503 03/22/17 0503 Imaging Last Impressions Head CT 03/20/17323 Signed Impressions: Service Date/Time: Monday, March 20, 2017 03:47 - CONCLUSION: 1. No acute intracranial abnormalities. Right-sided scalp laceration. Antonio Belle MD Cervical Spine CT 03/20/174 Signed Impressions: Service Date/Time: Monday, March 20, 2017 03:49 - CONCLUSION: 1. No acute findings. Moderate to severe degenerative disc disease. Antonio Belle MD Chest CT 03/20/17 0000 Signed Impressions: Service Date/Time: Monday, March 20, 2017 06:32 - CONCLUSION: 1. No acute findings. Dependent atelectasis in the lungs. Dense coronary calcifications. Antonio Belle MD Abdomen/Pelvis CT 03/20/17 0000 Signed Impressions: Service Date/Time: Monday, March 20, 2017 06:32 - CONCLUSION: 1. Negative for acute traumatic injury within the abdomen and pelvis. Mild smooth endplate compression deformities at T12-L3 which appear chronic. Remote right acetabular fracture and pubic rami fractures. Antonio Belle MD Assessment and Plan Problem List: (1) Traumatic hemorrhagic shock ICD Code: T79.4XXA - Traumatic shock, initial encounter Status: Acute (2) Hypertension ICD Code: I10 - Hypertension Status: Acute Assessment and Plan Mr. Cross is a 77-year-old male with a history of peripheral vascular disease , hypertension, hyperlipidemia who was brought to the hospital on 03/20/2017 after he fell and hit his head against a bookshelf. He sustained a scalp laceration which was repaired in the emergency department. He was in hemorrhagic shock upper arrival. In the ED his hemoglobin was 4.4 and patient received multiple units of PRBCs. - Traumatic hemorrhagic shock - Most likely from acute blood loss. - However chronic blood loss cannot be ruled out. - Patient reports feeling dizzy and lightheaded and fatigued for the last 3- 4 weeks prior to this admission. - Would recommend a anemia work up by PCP and possible referral to a mycologist. - Patient is currently hemodynamically stable and can be discharged from medical standpoint. - Hypertension - Hyperlipidemia - Continue amlodipine 2.5 mg daily, gemfibrozil - BPH - continue finasteride and Flomax. Full code. Thank you for the consult. We'll continue to follow this patient with you. Problem Qualifiers (1) Traumatic hemorrhagic shock: Qualified Codes: T79.4XXA - Traumatic shock, initial encounter Carla Tucker DO Mar 22, 2017 8:03 am
[2017-03-22 08:18] VITALS: BP 155/70; PULSE 65; RESP 18; TEMP 98.2; O2SAT 92
[2017-03-22] MEDS: FAMOTIDINE 20 MG/2 ML VIAL IV PUSH SCH (08:51)
[2017-03-22] MEDS: FERROUS SULFATE 325 MG (65 MG ELEMENTAL IRON) TAB PO SCH (08:52)
[2017-03-22] MEDS: amLODIPine BESYLATE 5 MG TAB PO SCH (08:52)
[2017-03-22] MEDS: TAMSULOSIN HCL 0.4 MG CAP PO SCH (08:52)
[2017-03-22] MEDS: FINASTERIDE 5 MG TAB PO SCH (08:52)
[2017-03-22] MEDS: DOCUSATE SODIUM 50 MG/SENNA 8.6 MG TAB PO SCH (08:52)
[2017-03-22] MEDS: COLLAGENASE OINT 30 GM TUBE TOPICAL SCH (08:53)
[2017-03-22] MEDS: MULTIVITAMIN INJ 10 ML, THIAMINE INJ 100 MG, FOLIC ACID INJ 1 MG in SODIUM CHLORID 0.9%... IV SCH (09:01)
--- NOTE | 2017-03-22 10:26 | PD.WCN.NOT ---
Wound Consult Description: Wound consult ordered by Recommendation: For continuity of care continue Santyl as ordered Additional Information: Patient not seen.Orders in place for wound care by physician Dunia Cary [facility] Mar 22, 2017 10:26
[2017-03-22] MEDS ORDERED: OXYC1TAB63 PO (11:22)
--- NOTE | 2017-03-22 11:28 | HHI.FF ---
Face to Face Verification Diagnosis: (1) Scalp laceration (2) Traumatic hemorrhagic shock (3) Anemia Physical Therapy Order: Evaluate and Treat, Improve ambulation, Strength and gait training Home Health Nursing Order: Medical education Signs/symptoms of disease process Medication education-adverse effect Nursing assessment with vital signs I have seen patient Vitor Cross on 03/22/17. My clinical findings support the need for the requested home health care services because: Ltd mobility - disease progression Deconditioned w/ increased weakness Limited ability to care for self High risk of falls Infection w/ risk of complications I certify that my clinical findings support that this patient is homebound because: Post-op weakness Unsteady gait/balance Unsafe to leave home unassisted [id number] bed/chair Unable to use public transportation Jessica Howard Mar 22, 2017 11:28
[2017-03-22 12:00] VITALS: BP 135/62; PULSE 75; RESP 18; TEMP 97.1; O2SAT 94
--- NOTE | 2017-03-22 12:45 | HHI.DS ---
Discharge Summary Admission Date Mar 20, 2017 at 05:51 Discharge Date: Mar 22, 2017 Admitting Diagnosis hypovolemic hypotesion; scalp laceration; minor CHI (1) Scalp laceration ICD Codes: S01.01XA - Laceration without foreign body of scalp, initial encounter Diagnosis: Principal Status: Acute (2) Traumatic hemorrhagic shock ICD Codes: T79.4XXA - Traumatic shock, initial encounter Diagnosis: Principal Status: Acute Brief History Fall CBC/BMP: 03/22/17 0503 03/22/17 0503 Significant Findings Laboratory Tests Test 03/20/17 04:15 03/20/17 05:30 03/20/17 05:50 03/20/17 06:31 Red Blood Count 1.54 MIL/MM3 (4.50-5.90) Hemoglobin 4.4 GM/DL (13.0-17.0) Hematocrit 14.0 % (39.0-51.0) Mean Corpuscular Hemoglobin Concent 31.1 % (32.0-36.0) Red Cell Distribution Width 17.5 % (11.6-17.2) Monocytes (%) (Auto) 18.7 % (0.0-8.0) Lymphocytes # (Auto) 0.8 TH/MM3 (1.0-4.8) Activated Partial Thromboplast Time 23.1 SEC (24.3-30.1) Venous Blood pH 7.28 (7.360-7.400) Venous Blood Partial Pressure CO2 34 mmHg (44-48) Venous Blood HCO3 16 mmol/L (22-26) Venous Blood Oxygen Saturation 48 % (70-76) Venous Blood Oxygen Content 2.8 Vol % (9.0-17.0) Venous Blood Base Excess -9.9 mmol/L (-2-2) Test 03/20/17 06:33 03/20/17 12:25 03/20/17 18:27 03/21/17 05:30 Blood Urea Nitrogen 38 MG/DL (7-18) 35 MG/DL (7-18) Creatinine 1.53 MG/DL (0.60-1.30) 1.33 MG/DL (0.60-1.30) Random Glucose 126 MG/DL (74-106) Calcium Level 8.0 MG/DL (8.5-10.1) 8.3 MG/DL (8.5-10.1) Chloride Level 114 MEQ/L (98-107) 108 MEQ/L (98-107) Carbon Dioxide Level 16.1 MEQ/L (21.0-32.0) Estimat Glomerular Filtration Rate 44 ML/MIN (>89) 52 ML/MIN (>89) Ethyl Alcohol Level 100 MG/DL (0-5) Hemoglobin 7.7 GM/DL (13.0-17.0) 8.7 GM/DL (13.0-17.0) 8.2 GM/DL (13.0-17.0) Hematocrit 22.7 % (39.0-51.0) 24.8 % (39.0-51.0) 23.1 % (39.0-51.0) Red Blood Count 2.72 MIL/MM3 (4.50-5.90) Platelet Count 126 TH/MM3 (150-450) Monocytes (%) (Auto) 15.8 % (0.0-8.0) Monocytes # (Auto) 1.1 TH/MM3 (0-0.9) Test 03/22/17 05:03 Red Blood Count 3.17 MIL/MM3 (4.50-5.90) Hemoglobin 9.3 GM/DL (13.0-17.0) Hematocrit 27.1 % (39.0-51.0) Platelet Count 127 TH/MM3 (150-450) Monocytes (%) (Auto) 13.4 % (0.0-8.0) Monocytes # (Auto) 1.1 TH/MM3 (0-0.9) Blood Urea Nitrogen 30 MG/DL (7-18) Estimat Glomerular Filtration Rate 58 ML/MIN (>89) Imaging Last Impressions Head CT 03/20/17323 Signed Impressions: Service Date/Time: Monday, March 20, 2017 03:47 - CONCLUSION: 1. No acute intracranial abnormalities. Right-sided scalp laceration. Antonio Belle MD Cervical Spine CT 03/20/17323 Signed Impressions: Service Date/Time: Monday, March 20, 2017 03:49 - CONCLUSION: 1. No acute findings. Moderate to severe degenerative disc disease. Antonio Belle MD Chest CT 03/20/17 0000 Signed Impressions: Service Date/Time: Monday, March 20, 2017 06:32 - CONCLUSION: 1. No acute findings. Dependent atelectasis in the lungs. Dense coronary calcifications. Antonio Belle MD Abdomen/Pelvis CT 03/20/17 0000 Signed Impressions: Service Date/Time: Monday, March 20, 2017 06:32 - CONCLUSION: 1. Negative for acute traumatic injury within the abdomen and pelvis. Mild smooth endplate compression deformities at T12-L3 which appear chronic. Remote right acetabular fracture and pubic rami fractures. Antonio Belle MD PE at Discharge GENERAL: This is a 77-year-old male lying in bed. No distress noted. SKIN: Warm and dry. Right ankle wound wrapped with Ezequiel bandage. HEAD: Normocephalic. Right scalp laceration with kevon in place. [employer]ER. EYES: PERRLA ENT: No nasal bleeding or discharge. Mucous membranes pink and moist. NECK: Trachea midline. No JVD. CARDIOVASCULAR: Regular rate and rhythm. RESPIRATORY: No accessory muscle use. Lungs are clear to auscultation. Breath sounds equal bilaterally. No distress or dyspnea. GASTROINTESTINAL: BS + x 4 quads. Abdomen soft, non-tender, nondistended. MUSCULOSKELETAL: Extremities without cyanosis, or edema. + peripheral pulses x 4 extremities. Warm with good capillary refill and sensation. MAEW. NEUROLOGICAL: Awake and alert. Normal speech and pattern. Hospital Course MI'KMAQ: This is a 77-year-old male who sustained a fall. He fell from a standing position striking his head on a table edge. + LOC. He waited several hours before calling [facility]. + ETOH = 100. GCS equals 15. He is on Plavix and aspirin at home. INJURIES: Scalp lac (17 kevon) Concussion Hemorrhagic shock PMHx: Multiple falls, HTN, HLD, PVD, BPH, glaucoma, arthritis, CAD, carotid endarterectomy, right femoral endarterectomy angioplasty (2009), right second toe amputation, tobacco use, ETOH abuse Procedures: Consults: [facility]. Hospitalist. Wound care nurse. Case management. H&H stable = 9.3 / 27 The patient is now tolerating a po diet. Eating and drinking well. Pain is being managed well with PO pain medications, and patient is being a provided with a script for pain meds upon discharge. (NO driving while taking narcotic pain medication enforced to patient.) We have recommended to patient to continue with stool softeners while taking narcotic pain medications to prevent constipation. Pt has been participating in PT and OT while admitted at [facility] and has been ambulating with their assistance and independently. PT will be renewed for home. All follow up appointments have been provided and discussed with the patient. It is recommended that the patient keeps all his follow up appointments for continued recovery. Patient's condition and plan of care discussed with collaborating trauma surgeon. He is agreeable to plan for discharge today. Therefore, the patient is stable to be safely discharged home from a trauma surgery standpoint. Thank you for allowing us to participate in his care. We wish Vitor the best in his recovery. Scalp lac (17 kevon) Concussion Hemorrhagic shock Wash scalp daily with soap and water. Pat dry. Leave open to air. Return to trauma clinic for staple removal in approx 10 days Serial neuro checks patient A&O CT brain for any change in neurological status Vital signs stable H&H equals 9. Transfuse 1 unit packed red blood cells 1 yesterday Follow-up labs in the morning PMHx: Multiple falls, HTN, HLD, PVD, BPH, glaucoma, arthritis, CAD, carotid endarterectomy, right femoral endarterectomy angioplasty (2009), right second toe amputation, tobacco use, ETOH abuse Hospitalist consult to assist in medical management Norvasc 2.5 mg daily Proscar 5 mg daily Flomax 0.4 mg daily Chronic wound right lower extremity Wound care nurse following Pt Condition on Discharge: Stable Discharge Disposition: Disch w/ Home Health Serv Discharge Instructions DIET: Follow Instructions for: Heart Healthy Diet Activities you can perform: Regular-No Restrictions Activities to Avoid: Driving for 24 hrs, Concussion Sports, Contact Sports, Lifting/Bending, Prolonged Standing Other Activity Instructions: No driving while taking narcotic pain meds. Jessica Howard Mar 22, 2017 12:45
== END 2017-03-22 15:05 | disposition home health service (06) | DRG 923 ==
LOC: NEPC 03:11 → NEDA 05:51 → N03B 07:54 → N05B 17:29
PROVIDERS: ADMIT Surgery Trauma Surgery; ATTEND Surgery Trauma Surgery
PROC: 0HQ0XZZ Repair Scalp Skin, External Approach (ICD-10-PCS; principal; 2017-03-20)
PROC: 30233N1 Transfusion of Nonautologous Red Blood Cells into Peripheral Vein, Percutaneous Approach (ICD-10-PCS; 2017-03-20)
DX: T79.4XXA Traumatic shock, initial encounter (principal); E87.2 Acidosis; I12.9 Hypertensive chronic kidney disease with stage 1 through stage 4 chronic kidney disease, or unspecified chronic kidney disease; H40.9 Unspecified glaucoma; S06.0X0A Concussion without loss of consciousness, initial encounter; D62 Acute posthemorrhagic anemia; I65.29 Occlusion and stenosis of unspecified carotid artery; S01.01XA Laceration without foreign body of scalp, initial encounter; I73.9 Peripheral vascular disease, unspecified; N18.9 Chronic kidney disease, unspecified; G47.30 Sleep apnea, unspecified; E78.5 Hyperlipidemia, unspecified; M54.30 Sciatica, unspecified side; M47.817 Spondylosis without myelopathy or radiculopathy, lumbosacral region; F17.210 Nicotine dependence, cigarettes, uncomplicated; M25.552 Pain in left hip; W01.190A Fall on same level from slipping, tripping and stumbling with subsequent striking against furniture, initial encounter; M19.90 Unspecified osteoarthritis, unspecified site; H91.90 Unspecified hearing loss, unspecified ear; N40.0 Benign prostatic hyperplasia without lower urinary tract symptoms; F10.10 Alcohol abuse, uncomplicated; I25.10 Atherosclerotic heart disease of native coronary artery without angina pectoris; R29.6 Repeated falls; Y90.5 Blood alcohol level of 100-119 mg/100 ml; Z79.82 Long term (current) use of aspirin; Z89.421 Acquired absence of other right toe(s); Z79.02 Long term (current) use of antithrombotics/antiplatelets
CPT/HCPCS: 12002; 36430; 51702; 70450; 71260; 72125; 74177; 80048; 80307; 82805; 83735; 84484; 85014; 85018; 85025; 85610; 85730; 86850; 86900; 86901; 86920; 90471; 90715; 93005; J0690; J1940; J3411; J7030; J7040; J7050; J7120; P9016; Q9967

== ENCOUNTER → 2017-05-03 | Outpatient (CLI) | payer MEDICARE ==
[~2017-05-03] MED LIST changes: -ASPI-183 PO; -CIPR500T2 PO; +MAGN30S PO; +OXYC1TAB63 PO; +PERI PO; -PLAV75TA29 PO
[2017-05-03 16:39] LABS: AUTOMATED NEUTROPHIL # 2.2 TH/MM3 (1.8-7.7); BASOPHIL % 1.2 % (0.0-2.0); EOSINOPHIL # 0.1 TH/MM3 (0-0.4); EOSINOPHIL % 1.4 % (0.0-4.0); HEMATOCRIT 30.5 % (39.0-51.0); LYMPH % 20.7 % (9.0-44.0); LYMPHOCYTE # 0.8 TH/MM3 (1.0-4.8); MEAN CELL VOLUME 89.8 FL (80.0-100.0); MEAN CORPUSCULAR HEMOGLOBIN 29.3 PG (27.0-34.0); MEAN CORPUSCULAR HGB CONC 32.7 % (32.0-36.0); MEAN PLATELET VOLUME 8.6 FL (7.0-11.0); MONO % 17.4 % (0.0-8.0); MONOCYTE # 0.6 TH/MM3 (0-0.9); NEUT % 59.3 % (16.0-70.0); PLATELET COUNT 130 TH/MM3 (150-450); RED CELL DISTRIBUTION WIDTH 18.3 % (11.6-17.2); WHITE BLOOD COUNT 3.7 TH/MM3 (4.0-11.0)
[2017-05-03 16:51] LABS: ALBUMIN 3.7 GM/DL (3.4-5.0); BICARBONATE 24.8 MEQ/L (21.0-32.0); BLOOD UREA NITROGEN 33 MG/DL (7-18); CALCIUM 9.2 MG/DL (8.5-10.1); CHLORIDE 108 MEQ/L (98-107); CREATININE 1.28 MG/DL (0.60-1.30); GLOMERULAR FILTRATION RATE 54 ML/MIN (>89); GLUCOSE,RANDOM 85 MG/DL (74-106); IRON (FE) 38 MCG/DL (65-175); PHOSPHORUS 3.4 MG/DL (2.5-4.9); SODIUM (NA) 141 MEQ/L (136-145)
[2017-05-03 17:18] LABS: % SATURATION IRON PROFILE 7.1 % (20-50); FERRITIN 21 NG/ML (26-388); TOTAL IRON BINDING CAPACITY 533 MCG/DL (250-450)
[2017-05-03 17:25] LABS: FOLATE GREATER THAN 20.0 NG/ML (3.1-17.5)
== END ==
LOC: PLAB 13:25
PROVIDERS: ATTEND Family Medicine
DX: I12.9 Hypertensive chronic kidney disease with stage 1 through stage 4 chronic kidney disease, or unspecified chronic kidney disease (principal); N18.9 Chronic kidney disease, unspecified; D63.1 Anemia in chronic kidney disease
CPT/HCPCS: 36415; 80069; 82607; 82728; 82746; 83540; 83550; 85025

== ENCOUNTER → 2017-06-25 | Outpatient (CLI) | DX: D64.9 Anemia, unspecified (principal) ==